=== PATIENT | female | born 1960 | race Caucasian/White ===

== ENCOUNTER → 2016-05-25 | Outpatient (REF) | payer OTHER ==
[2016-05-25 15:37] LABS: MEAN CORPUSCULAR HEMOGLOBIN 30.9 pg (27.0-33.0); MEAN CORPUSCULAR HGB CONC 34.3 g/dl (32.0-36.5); MEAN CORPUSCULAR VOLUME 90.3 fl (80.0-96.0); RED CELL DISTRIBUTION WIDTH 12.6 % (11.5-14.5); WHITE BLOOD COUNT 8.8 K/mm3 (4.0-10.0)
[2016-05-25 15:48] LABS: ALBUMIN 4.1 GM/DL (3.2-5.2); ALBUMIN/GLOBULIN RATIO 1.21 (1.00-1.93); ALKALINE PHOSPHATASE 113 U/L (45-117); ALT/SGPT 30 U/L (12-78); ANION GAP 11 MEQ/L (8-16); AST/SGOT 15 U/L (15-37); BILIRUBIN,TOTAL 0.2 MG/DL (0.2-1.0); BLOOD UREA NITROGEN 9 MG/DL (7-18); CALCIUM LEVEL 9.1 MG/DL (8.5-10.1); CARBON DIOXIDE LEVEL 28 MEQ/L (21-32); CHLORIDE LEVEL 104 MEQ/L (98-107); CHOLESTEROL LEVEL 247 MG/DL (<200); CREATININE FOR GFR 0.77 MG/DL (0.55-1.02); GLOMERULAR FILTRATION RATE > 60.0 (>51); GLUCOSE, FASTING 87 MG/DL (70-105); SODIUM LEVEL 143 MEQ/L (136-145); TOTAL PROTEIN 7.5 GM/DL (6.4-8.2); TRIGLYCERIDES LEVEL 158 MG/DL (<150)
== END ==
LOC: M SFHCPLAZ 13:37
PROVIDERS: ATTEND Nurse Practitioner Adult Health
DX: Z00.00 Encounter for general adult medical examination without abnormal findings (principal)

== ENCOUNTER → 2016-07-15 | Outpatient (REF) | payer OTHER | LOC: M SFHCWAGY 14:38 | PROVIDERS: ATTEND Nurse Practitioner Family | DX: Z12.4 Encounter for screening for malignant neoplasm of cervix (principal) ==

== ENCOUNTER → 2016-07-15 | Outpatient (CLI) | payer OTHER ==
--- NOTE | 2016-07-15 18:14 | REPMRS ---
Patient History The patient states she had a clinical breast exam in 07/25 Patient is postmenopausal. No known family history of cancer. Digital Woman Screen Mammo: July 15, 2016 - Exam #: [id number] Bilateral CC and MLO view(s) were taken. Technologist: Sarah Nichols, Technologist Prior study comparison: August 05, 2015, right breast digital mammo diagnostic unilateral, performed at [facility]. July 09, 2015, digital woman screen mammo performed at [facility]. FINDINGS: There are scattered fibroglandular densities. There has been no change in the appearance of the mammogram from the prior studies. There is a mild amount of scattered fibroglandular density which is fairly symmetric. There is no interval development of dominant mass, architectural distortion, or clustered microcalcification suggestive of malignancy. ASSESSMENT: BI-RADS/ACR category 1 mammogram. Negative. Recommendation Routine screening mammogram in 1 year (for women over age 40). This mammogram was interpreted with the aid of an FDA-approved computer-aided dectection system. Electronically Signed By: Elvis Barrow MD 07/15/16 [id number]
== END ==
LOC: M WHC 14:15
PROVIDERS: ATTEND Nurse Practitioner Family
DX: Z12.31 Encounter for screening mammogram for malignant neoplasm of breast (principal); Z78.0 Asymptomatic menopausal state

== ENCOUNTER → 2017-09-14 | Outpatient (REF) | payer OTHER ==
[2017-09-14 18:39] LABS: ALBUMIN 4.1 GM/DL (3.2-5.2); ALBUMIN/GLOBULIN RATIO 1.37 (1.00-1.93); ALKALINE PHOSPHATASE 109 U/L (45-117); ALT/SGPT 25 U/L (12-78); ANION GAP 6 MEQ/L (8-16); AST/SGOT 15 U/L (7-37); BILIRUBIN,TOTAL 0.3 MG/DL (0.2-1.0); BLOOD UREA NITROGEN 10 MG/DL (7-18); CALCIUM LEVEL 9.1 MG/DL (8.5-10.1); CARBON DIOXIDE LEVEL 28 MEQ/L (21-32); CHLORIDE LEVEL 107 MEQ/L (98-107); CHOLESTEROL LEVEL 214 MG/DL (<200); CHOLESTEROL RISK RATIO 5.095 (<5); CREATININE FOR GFR 0.76 MG/DL (0.55-1.30); GLOMERULAR FILTRATION RATE > 60.0 (>51); GLUCOSE, FASTING 82 MG/DL (70-100); HDL CHOLESTEROL 42 MG/DL (>40); LDL CHOLESTEROL 148.6 MG/DL (<100); NON-HDL-C 172 MG/DL; SODIUM LEVEL 141 MEQ/L (136-145); TOTAL PROTEIN 7.1 GM/DL (6.4-8.2); TRIGLYCERIDES LEVEL 117 MG/DL (<150)
[2017-09-15 09:52] LABS: TOTAL 25(OH) VITAMIN D 43.7 NG/ML (30.0-100.0)
== END ==
LOC: M SFHCPLAZ 15:34
DX: Z00.00 Encounter for general adult medical examination without abnormal findings (principal); E55.9 Vitamin D deficiency, unspecified; E78.2 Mixed hyperlipidemia

== ENCOUNTER → 2017-11-08 | Outpatient (REF) | payer OTHER | LOC: M SFHCLERA 11-09 12:24 | DX: D22.71 Melanocytic nevi of right lower limb, including hip (principal) ==

== ENCOUNTER → 2018-04-04 | Outpatient (CLI) | payer OTHER | LOC: M WHC 14:46 | PROVIDERS: ATTEND Nurse Practitioner Adult Health | DX: Z12.31 Encounter for screening mammogram for malignant neoplasm of breast (principal) ==

== ENCOUNTER → 2018-04-23 | Outpatient (CLI) | payer OTHER ==
--- NOTE | 2018-04-23 19:05 | REPMRS ---
Patient History The patient states she has not had a clinical breast exam in over a year. No known family history of cancer. Digital Woman Screen Mammo: April 23, 2018 - Exam #: [id number] Bilateral CC and MLO view(s) were taken. Technologist: Sarah Nichols, Technologist Prior study comparison: July 15, 2016, digital woman screen mammo performed at [facility]. August 05, 2015, right breast digital mammo diagnostic unilateral, performed at [facility]. July 09, 2015, digital woman screen mammo performed at [facility]. FINDINGS: There are scattered fibroglandular densities. There is a stable benign intramammary lymph node in the right breast unchanged. There has been no other change in the appearance of the mammogram from the prior studies. There is a mild amount of scattered fibroglandular density which is fairly symmetric. There is no interval development of dominant mass, architectural distortion, or clustered microcalcification suggestive of malignancy. 3-D tomosynthesis shows no additional findings. Assessment: BI-RADS/ACR category 2 mammogram. Benign finding(s). Recommendation Routine screening mammogram of both breasts in 1 year (for women over age 40). This patient's Lifetime Breast Cancer RIsk is estimated at 6.6 %. This mammogram was interpreted with the aid of an FDA-approved computer-aided dectection system. Electronically Signed By: Elvis Barrow MD 04/23/18 4521
== END ==
LOC: M WHC 13:26
PROVIDERS: ATTEND Nurse Practitioner Adult Health
DX: Z12.31 Encounter for screening mammogram for malignant neoplasm of breast (principal)

== ENCOUNTER → 2018-04-24 | Outpatient (CLI) | payer OTHER ==
--- NOTE | 2018-04-25 04:23 | REP ---
Clinical: Neck pain. Technique: AP, lateral, flexion/extension, bilateral oblique, swimmers, and open mouth views of the cervical spine. Findings: Straightening of normal lordosis is appreciated. Alignment is maintained. There is no evidence for acute fracture / compression injury or subluxation. Moderate to advanced multilevel degenerative changes include endplate sclerosis, osteophytosis, disc space narrowing. Findings are most pronounced at the C5-6 and C4-5 levels. Neural foramen are patent. C1-C2 articulation and odontoid process are normal. Impression: Moderate/advanced degenerative changes primarily involving C4-5 and C5-6. Electronically Signed by Obi Torres MD 04/25/2018 04:15 A
== END ==
LOC: M RAD 13:53
PROVIDERS: ATTEND Nurse Practitioner Adult Health
DX: M50.321 Other cervical disc degeneration at C4-C5 level (principal); M50.322 Other cervical disc degeneration at C5-C6 level

== ENCOUNTER 2018-06-18 13:54 | Emergency (ER) | payer OTHER ==
[~2018-06-18] VITALS: Ht 160 cm; Wt 78.2 kg
[2018-06-18] MEDS ORDERED: PROAAER10 INH (14:09)
[2018-06-18 15:04] LABS: HEMATOCRIT 41.3 % (36.0-47.0); HEMOGLOBIN 13.6 g/dl (12.0-15.5); MEAN CORPUSCULAR HEMOGLOBIN 29.4 pg (27.0-33.0); MEAN CORPUSCULAR HGB CONC 32.9 g/dl (32.0-36.5); MEAN CORPUSCULAR VOLUME 89.4 fl (80.0-96.0); PLATELET COUNT, AUTOMATED 252 10^3/uL (150-450); RED BLOOD COUNT 4.62 10^6/uL (4.00-5.40); WHITE BLOOD COUNT 8.4 10^3/uL (4.0-10.0)
[2018-06-18 15:26] LABS: BLOOD UREA NITROGEN 12 MG/DL (7-18); CALCIUM LEVEL 8.9 MG/DL (8.5-10.1); CARBON DIOXIDE LEVEL 26 MEQ/L (21-32); CHLORIDE LEVEL 107 MEQ/L (98-107); CREATININE FOR GFR 0.68 MG/DL (0.55-1.30); GLOMERULAR FILTRATION RATE > 60.0 (>51); GLUCOSE, FASTING 97 MG/DL (70-100); POTASSIUM SERUM 4.2 MEQ/L (3.5-5.1); SODIUM LEVEL 140 MEQ/L (136-145)
[2018-06-18] MEDS ORDERED: LISI10TA4 PO (15:50)
[2018-06-18 16:05] VITALS: BP 204/110
== END 2018-06-18 16:15 | disposition home or self-care (01) ==
LOC: EDBD 13:54 → M ED 13:54
DX: I10 Essential (primary) hypertension (principal); J44.1 Chronic obstructive pulmonary disease with (acute) exacerbation; F33.9 Major depressive disorder, recurrent, unspecified; F41.9 Anxiety disorder, unspecified; F17.200 Nicotine dependence, unspecified, uncomplicated; Z88.8 Allergy status to other drugs, medicaments and biological substances

== ENCOUNTER → 2019-02-22 | Outpatient (CLI) | payer OTHER ==
[~2019-02-22] MED LIST: LISI10TA4 PO; PROAAER10 INH
--- NOTE | 2019-02-22 13:58 | REP ---
MRI cervical spine: 02/22/2019. Indication: Neck pain. Comparison: 03/12/2016. Technique: Multiplanar short and long TR sequences of the cervical spine were obtained. Findings: Image quality is degraded by patient motion. There is straightening of the cervical lordosis. Disc dessication is noted throughout most pronounced at C5/C6. No worrisome marrow signal is detected. No abnormal cord signal is detected. C2/C3, C3/C4 and C4/C5: No focal disc herniation is present. There is no significant spinal canal or neural foraminal narrowing detected. C5/C6: Diffuse disc osteophyte complex is present with mild to moderate narrowing of the spinal canal. There is minimal flattening of the ventral cord. There is moderate to severe right greater than left neural foraminal narrowing. C6/C7 and C7/T1 : There is no disc herniation or significant spinal canal / neural foraminal narrowing. Impression: Degenerative sequelae of the cervical spine most pronounced at C5/C6 as described. Electronically Signed by Christofer Martinez DO 02/22/2019 01:49 P
== END ==
LOC: M RAD 09:38
PROVIDERS: ATTEND Orthopaedic Surgery
DX: M50.30 Other cervical disc degeneration, unspecified cervical region (principal); M48.02 Spinal stenosis, cervical region; M25.78 Osteophyte, vertebrae

== ENCOUNTER → 2019-06-20 | Outpatient (CLI) | payer OTHER ==
--- NOTE | 2019-06-21 05:21 | REP ---
Clinical: Lung screening. History smoking. Comparison: None Technique: Axial low-dose noncontrast images from the thoracic inlet to the upper abdomen using lung screening technique. Findings: The lung garg are well-aerated. There is a 6 mm nodule in the anterior left upper lobe (image 18). No consolidation or mass lesion is appreciated. No pleural effusion/reaction or pneumothorax. Tracheobronchial tree is patent. Mediastinum demonstrates mild atherosclerotic changes of the coronary arteries without cardiomegaly. Impression: Lung-RADS category III. 6 mm noncalcified nodule in the left upper lobe. Finding falls within the Probably Benign category and 6-month low-dose CT follow-up evaluation is recommended. Electronically Signed by Obi Torres MD 06/21/2019 05:13 A
== END ==
LOC: M RAD 13:51
PROVIDERS: ATTEND Nurse Practitioner Adult Health
DX: Z87.891 Personal history of nicotine dependence (principal); Z12.2 Encounter for screening for malignant neoplasm of respiratory organs

== ENCOUNTER → 2019-11-22 | Outpatient (CLI) | payer OTHER ==
--- NOTE | 2019-12-31 09:19 | REP ---
RIGHT SHOULDER SERIES: THREE VIEWS HISTORY: Right shoulder pain. FINDINGS: The right glenohumeral and acromioclavicular joints are normally aligned. There is minimal hypertrophy of the distal clavicle at the AC joint. No erosive change is seen. No fracture or subluxation is noted. The visualized right hemithorax is unremarkable. IMPRESSION: No acute abnormality. Minimal AC joint hypertrophy. MTDD
--- NOTE | 2019-12-31 09:20 | REP ---
HISTORY: Back pain. FINDINGS: There is a mild dextroconvex curvature. Lumbar vertebral body heights are preserved. No fracture or collapse is seen. Discogenic spurring is noted throughout the lumbar spine. Psoas margins are symmetric. Pedicles and posterior elements are intact. Sacrum and SI joints are unremarkable. IMPRESSION: Degenerative disk disease diffusely. No acute bony abnormality. MTDD
== END ==
LOC: M WUC 16:13
PROVIDERS: ATTEND Nurse Practitioner Adult Health
DX: M25.511 Pain in right shoulder (principal); M54.2 Cervicalgia

== ENCOUNTER → 2019-11-23 | Outpatient (REF) | payer OTHER ==
[2020-01-19 07:13] LABS: ALT/SGPT 32 U/L (12-78); BILIRUBIN,TOTAL 0.1 MG/DL (0.2-1.0); BLOOD UREA NITROGEN 16 MG/DL (7-18); CALCIUM LEVEL 9.8 MG/DL (8.5-10.1); CARBON DIOXIDE LEVEL 28 MEQ/L (21-32); CHLORIDE LEVEL 107 MEQ/L (98-107); CREATININE FOR GFR 0.85 MG/DL (0.55-1.30); GLOMERULAR FILTRATION RATE > 60.0 (>51); GLUCOSE, FASTING 84 MG/DL (70-100); HEMOGLOBIN A1c 5.5 %; POTASSIUM SERUM 4.2 MEQ/L (3.5-5.1); SODIUM LEVEL 141 MEQ/L (136-145); TOTAL PROTEIN 7.1 GM/DL (6.4-8.2)
== END ==
LOC: M WUC 13:27
PROVIDERS: ATTEND Nurse Practitioner Adult Health
DX: Z13.1 Encounter for screening for diabetes mellitus (principal); I10 Essential (primary) hypertension

== ENCOUNTER → 2020-01-16 | Outpatient (CLI) | payer OTHER ==
[~2020-01-16] MED LIST changes: +GASTROGRAFIN SOLUTION 30ML (Q9963) As Ordered ONE; +ISOVUE-370 76% 100ML VIAL As Ordered ONE
--- NOTE | 2020-01-21 09:34 | REP ---
CT CHEST WITHOUT CONTRAST HISTORY: Left upper lobe nodule on prior chest CT study. COMPARISON CHEST CT STUDY: 06/20/2019. This showed a 6-mm nodule in the left upper lobe. CT FINDINGS: The previously noted left upper lobe pulmonary nodule is again seen again measuring 6 mm in diameter. This has a relatively lucent center, but appears to be unchanged. No new pulmonary nodule is appreciated. No pleural or pericardial effusion is seen. No hilar or mediastinal mass or adenopathy is observed. Normal adrenal glands are seen. No bony abnormality is seen. IMPRESSION: 6-mm nodule left upper lobe again noted unchanged from the comparison study seven months prior. Lung-RADS Category 3. I would recommend a repeat chest CT study in six months time in reference to the relatively lucent center of this nodule. MTDD
== END ==
LOC: M RAD 13:01
PROVIDERS: ATTEND Nurse Practitioner Adult Health
DX: R91.1 Solitary pulmonary nodule (principal)

== ENCOUNTER → 2020-02-12 | Outpatient (CLI) | payer OTHER ==
[~2020-02-12] MED LIST changes: -GASTROGRAFIN SOLUTION 30ML (Q9963) As Ordered ONE; -ISOVUE-370 76% 100ML VIAL As Ordered ONE
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
== END ==
LOC: M PAIN 08:15
PROVIDERS: ATTEND Nurse Practitioner Family
DX: M79.18 Myalgia, other site (principal); J45.909 Unspecified asthma, uncomplicated; G43.909 Migraine, unspecified, not intractable, without status migrainosus; Z86.59 Personal history of other mental and behavioral disorders; Z87.891 Personal history of nicotine dependence; Z88.8 Allergy status to other drugs, medicaments and biological substances; Z79.51 Long term (current) use of inhaled steroids; Z79.899 Other long term (current) drug therapy

== ENCOUNTER → 2020-03-07 | Outpatient (CLI) | payer OTHER | LOC: M LABSMTC 10:25 | PROVIDERS: ATTEND Anesthesiology | DX: Z20.828 Contact with and (suspected) exposure to other viral communicable diseases (principal) ==

== ENCOUNTER → 2020-03-10 | Outpatient (CLI) | payer OTHER ==
[~2020-03-10] MED LIST changes: +BUPIVACAINE HCL 0.25% 10ML VIAL As Ordered ONE; +BUPIVACAINE HCL 0.25% 30ML VIAL As Ordered ONE; +NORCO, ANEXSIA 5/325MG TABLET (HYDROcodone/ACETAMINOPHEN) As Ordered ONE; +TRIAMCINOLONE ACETONIDE SUSP 40 MG/ML VIAL (J3301) As Ordered ONE; +diazePAM 5MG TABLET As Ordered ONE
--- NOTE | 2020-03-18 05:13 | ECWPNPC ---
PATIENT NAME: AMY DURHAM : 1960 GENDER: FEMALE VISIT DATE: 03/10/2020 DISCHARGE DATE: 03/10/20 1351 VISIT LOCKED DATE TIME: PHYSICIAN: KAJAL ADAMES MD PHYSICIAN PAGER NO: ACTIVE RESOURCE: KAJAL ADAMES MD REASON FOR APPOINTMENT 1. TRIGGER POINT INJECTION NECK RIGHT, SHOULDER RIGHT, THORACIC RIGHT HISTORY OF PRESENT ILLNESS GENERAL: -. FALL RISK SCREENING: SCREENING :NO FALLS REPORTED IN THE LAST YEAR PAIN SCREENING: PATIENT HAS A COMPLAINT OF ACUTE OR CHRONIC PAIN :YES LOCATION OF PAIN:NECK, RIGHT SHOULDER INTENSITY OF PAIN (SCALE OF 1 TO 10):10 WHAT DOES YOUR PAIN FEEL LIKE:ACHING, CONTINOUS, INTERMITTENT, SHARP, STABBING, THROBBING PAIN WORSE WITH MOVEMENT OF RIGHT ARM. DURATION:CONTINOUS PAIN IS INCREASED BY:ACTIVITIES PAIN IS DECREASED BY:USE OF PAIN MEDICATIONS CANNABIS OIL NURSING NOTE: -. PAIN CENTER INTAKE QUESTIONS: DO YOU HAVE A HISTORY OF MRSA? :NO DO YOU TAKE A BLOOD THINNERS? :NO DO YOU HAVE ANY BLEEDING DISORDERS? :NO ANY NEW NUMBNESS OR WEAKNESS IN YOUR LEGS OR ARMS? :NO ANY PACEMAKER,DEFIBRILLATOR, OR DORSAL COLUMN STIMULATOR? :NO DO YOU HAVE ANY RASHES OR OPEN SORES? :NO ARE YOU ALLERGIC TO IV DYE? :NO ARE YOU DIABETIC? :NO ANY NEW PROBLEMS WITH YOUR MEDICATIONS? :NO HAVE YOU RECEIVED A VACCINE IN THE PAST 30 DAYS? :NO DO YOU PLAN TO RECEIVE A VACCINE IN THE NEXT 21 DAYS? :NO DO YOU TAKE ANY IMMUNOSUPPRESSIVE MEDICATIONS? :NO ANY HISTORY OF SEIZURES? :NO ANY HISTORY OF CARDIAC ISSUES OR EVENTS? :YES HTN DO YOU HAVE SLEEP APNEA? :NO ANY RECENT HEAD INJURY? :NO DO YOU HAVE ANY NEW INFECTIONS? :NO IS THERE A CHANCE YOU COULD BE ? :NO ARE YOU BREAST FEEDING? :NO WHEN DID YOU LAST EAT? : 03/09/20 2200 WHEN DID YOU LAST DRINK? : 03/10/20 0500 WHAT DID YOU LAST DRINK? : WATER NAME OF PERSON DRIVING YOU HOME? : [employer] DO YOU HAVE ANY OTHER QUESTIONS OR CONCERNS? : NO CURRENT MEDICATIONS TAKING MAY USE PATIENT STATES SHE USES MEDICAL MARIJUANA OIL, NOTES: FEW DAYS AGO TAKING AMLODIPINE BESYLATE 5 MG TABLET 1 TABLET ORALLY ONCE A DAY, NOTES: 03/10/20 0500 TAKING DRISDOL 59467 UNIT CAPSULE 1 CAPSULE ORALLY WEEKLY, NOTES: 03/01/20 TAKING NORVASC 5MG TABLET ORAL ORALLY DAILY, NOTES: 03/10/20 0500 TAKING FLUTICASONE-SALMETEROL(SENSOR) 232-14 MCG/ACT AEROSOL POWDER BREATH ACTIVATED 1 PUFF INHALATION BID, NOTES: NOT RECENTLY TAKING ALBUTEROL SULFATE HFA 108 (90 BASE) MCG/ACT AEROSOL SOLUTION 1 PUFF NEEDED INHALATION EVERY 4 HRS, NOTES: A FEW DAYS TAKING LOSARTAN POTASSIUM 100 MG TABLET 1 TABLET ORALLY ONCE A DAY, NOTES: 03/10/20 0500 NOT-TAKING ARNUITY ELLIPTA 200 MCG/ACT AEROSOL POWDER BREATH ACTIVATED 1 PUFF INHALATION ONCE A DAY NOT-TAKING VITAMIN D 125 MCG (5000 UT) CAPSULE DIRECTED ORALLY 1 MEDICATION LIST REVIEWED AND RECONCILED WITH THE PATIENT PAST MEDICAL HISTORY FOLLOWS WITH [facility]/NO LONGER FOLLOWS WITH [facility] TOBACCO ABUSE QUIT 04/23/2018 ANXIETY PER PATIENT ASTHMA A CHILD DEPRESSION MIGRAINE ARTHRITIS COLONOSCOPY 07/28/2015 SMALL INTERNAL HEMORRHOIDS ENTIRE COLON IS NORMAL 10 YEAR FOLLOW-UP SUGGESTED PFT'S 09/23/15 @ [facility] OBSTRUCTIVE DEFICIT REFUSES PNEUMONIA VACCINES 11/2016 REF 09/25 REF 03/2018 REF 05/2019 CERVICAL AND RIGHT SHOULDER PAIN ALLERGIES EFFEXOR: HIVES, RASH - ALLERGY PROZAC: HEART RACE - SIDE EFFECTS PAXIL: RASH - SIDE EFFECTS ZYBAN: HEADACHE - SIDE EFFECTS LISINOPRIL: SLEEPY - LACK OF THERAPEUTIC EFFECT SURGICAL HISTORY 1984, 1985 COLONOSCOPY 07/28/2015 REMOVED ALL OF TEETH 04/06/2016 [facility] HYSTEROSCOPY AND POLYPECTOMY DR MARQUEZ 10/01/15 FAMILY HISTORY 2DAUGHTER(S) - HEALTHY. 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 SOCIAL HISTORY GENERAL: TOBACCO USE ARE YOU A:NONSMOKER QUIT June SMOKING CESSATION INFORMATION GIVEN06/14/2017 ADDITIONAL FINDINGS: TOBACCO VAT-[id number] SMOKER VAPORNO E-CIGARETTENO LATEX QUESTIONNAIRE LATEX ALLERGY : HAVE YOU EVER DEVELOPED ANY TYPE OF REACTION AFTER HANDLING LATEX PRODUCTS SUCH RUBBER GLOVES, CONDOMS, DIAPHRAGMS, BALLOONS, SOCKS, OR UNDERWEAR?NO LATEX ALLERGY : HAVE YOU EVER DEVELOPED ANY TYPE OF REACTION DURING OR AFTER DENTAL APPOINTMENT, VAGINAL/RECTAL EXAMINATION, SURGICAL PROCEDURE, OR ANY OTHER EXPOSURE?NO LATEX RISK : HAVE YOU EVER HAD ANY DIFFICULTY BREATHING OR HIVES AFTER EATING OR HANDLING ANY FRUITS, OR VEGETABLES; SUCH KIWI, BANANAS, STONE FRUITS, OR CHESTNUTSNO LATEX RISK : DO YOU HAVE A PREVIOUS PERSONAL HISTORY OF MORE THAN NINE SURGERIES, SPINA BIFIDA, OR REPEATED CATHERIZATIONS? NO LATEX RISK : ARE YOU FREQUENTLY EXPOSED TO LATEX PRODUCTS IN YOUR OCCUPATION?NO DATE ASKED : 03/09/2020 LUNG CANCER SCREENING SMOKING STATUS:FORMER SMOKER IS THE PATIENT BETWEEN THE AGE OF 57 AND 79?YES HAVE YOU QUIT SMOKING WITHIN THE PAST 15 YEARS?YES HAS THE PATIENT EVER BEEN DIAGNOSED WITH LUNG CANCER?NO CREATE REFERRAL:GENERATE AND CREATE REFERRAL TO THE ONCOLOGY NURSE NAVIGATOR (SMP) LISTING USING THE LDCT SCAN PROCEDURE DISCLAIMER:PLEASE ADD DISCLAIMER FROM BROWSE SECTION OF THE NOTE BMI CARE GOAL FOLLOW-UP ABOVE NORMAL BMI FOLLOW-UPDIETARY MANAGEMENT EDUCATION, GUIDANCE, AND COUNSELING ALCOHOL SCREENING DID YOU HAVE A DRINK CONTAINING ALCOHOL IN THE PAST YEAR?YES HOW OFTEN DID YOU HAVE SIX OR MORE DRINKS ON ONE OCCASION IN THE PAST YEAR?NEVER (0 POINTS) HOW MANY DRINKS DID YOU HAVE ON A TYPICAL DAY WHEN YOU WERE DRINKING IN THE PAST YEAR?1 OR 2 (0 POINTS) HOW OFTEN DID YOU HAVE A DRINK CONTAINING ALCOHOL IN THE PAST YEAR?MONTHLY OR LESS (1 POINT) POINTS1 INTERPRETATIONNEGATIVE RECREATIONAL DRUG USE DRUG USE?YES HOW OFTEN AND HOW MUCH? PT USES MEDICAL MARIJUANA CAFFEINE CAFFEINE USE?YES YES HOW OFTEN AND HOW MUCH? 4 COFFEE DAILY SEXUAL HX HAD SEX IN THE LAST 12 MONTHS (VAGINAL, ORAL, OR ANAL)?NO HAVE YOU EVER HAD AN STD?NO HIV / HEP-C SCREENING HIV TEST OFFERED TO PATIENT:YES ALREADY DONE DATE OFFERED:07/20/2017 TEST ACCEPTED:NO HEP-C TEST OFFERED TO PATIENT:YES DATE OFFERED:07/20/2017 REASON:OTHER (DOCUMENT IN NOTE) ALREADY BEEN TESTED NEGATIVE TEST ACCEPTED:NO REASON:PATIENT DECLINED BROCHURE PROVIDED TO PATIENTYES 07/20/2017 SCIENTOLOGY [id number] NONE LANGUAGE LANGUAGES SPOKEN:JORDANIAN EDUCATION LEVEL OF EDUCATION:NOT FINISHED HIGH SCHOOL JUST COMPLETED GED LEARNING BARRIERS / SPECIAL NEEDS CHANGE FROM LAST VISIT?NO BARRIERS TO LEARNING?NO HEARING IMPAIRED?NO VISION IMPAIRED?YES :CORRECTIVE LENSES COGNITIVELY IMPAIRED?NO READINESS TO LEARN?YES LEARNING PREFERENCES?NO LEARNING CAPABILITIES PRESENT?YES EMOTIONAL BARRIERS?NO SPECIAL DEVICES?YES :BRACE KNEE BRACES FOR LONG DISTANCE SKIING TEACHER NEEDED?NO DOMESTIC VIOLENCE DO YOU FEEL SAFE IN YOUR ENVIRONMENT?YES OCCUPATION: DOES NOT WORK DUE TO EMOTIONAL ISSUES. DIET: REGULAR. EXERCISE: WALKING. MARITAL STATUS: .. OTHERS AT HOME: NONE. PAIN CLINIC PFS, CLERGY, PUBLIC HEALTH REFERRALS PFS REFERRAL NEEDED?NO CLERGY REFERRAL NEEDED?NO PUBLIC HEALTH REFERRAL NEEDED?NO WAS THE PROVIDER NOTIFIED OF ANY PERTINENT INFO?YES HAS THE PATIENT BEEN EDUCATED REGARDING HIS/HER PLAN OF CARE?YES HAS THE PATIENT BEEN EDUCATED REGARDING PAIN, THE RISK FOR PAIN, THE IMPORTANCE OF EFFECTIVE PAIN MANAGEMENT, AND THE PAIN ASSESSMENT PROCESS?YES HOUSING: MOVED INTO [facility]. ADVANCE DIRECTIVE ADVANCE DIRECTIVE DISCUSSED WITH PATIENT:YES STATES SHE DOES NOT HAVE ADVANCED DIRECTIVES BORN AND RASIED IN [place],. HOSPITALIZATION/MAJOR DIAGNOSTIC PROCEDURE [facility]- [facility] 02/1985 VITAL SIGNS WT 186.6 LBS, HT 62 IN, BMI 34.13 INDEX, BP 183/90 MM HG, HR 73 /MIN, RR 18 /MIN, TEMP 98.0 F, OXYGEN SAT % 98%, SAFE IN ENV? (Y/N) YES, NA INITIALS SC 09:34, REVIEWED BY: ALVAREZ FULLER WORKERS COMPENSATION CONSULTANT. EXAMINATION GENERAL EXAMINATION: THE PATIENT IS ALERT, ORIENTED TIMES THREE AND COOPERATIVE. HEART SHOWS REGULAR RHYTHM, NO MURMURS AND NO GALLOPS. LUNGS ARE CLEAR TO AUSCULTATION. ASSESSMENTS MYALGIA, OTHER SITE - M79.18 (PRIMARY) TREATMENT MYALGIA, OTHER SITE MEDICATION: NORCO TABLET 5MG/325MG ORALLY (HYDROCODONE/ACETAMINOPHEN)ASTRID VALENCIA 03/10/2020 09:48:45 AM - GIVE 2 TABS OKSANA FULLER 03/10/2020 11:00:23 AM > LOT# [id number] EXP: 06/2021. REE ANDERSON 03/10/2020 11:02:02 AM > VERIFIED OKSANA FULLER 03/10/2020 11:06:09 AM > ADMINISTERED. MEDICATION: VALIUM TAB 10MG ORALLY (DIAZEPAM)OKSANA FULLER 03/10/2020 11:00:49 AM > LOT# [id number] EXP: 10/28. REE ANDERSON 03/10/2020 11:02:16 AM > VERIFIED OKSANA FULLER 03/10/2020 11:06:32 AM > ADMINISTERED. PROCEDURES PAIN NURSING RECORD PRE-PROCEDURE IV SITE N/A, PRE-PROCEDURE ORAL MEDICATIONS YES PER MD ORDERS. PROCEDURE IN ROOM 0934 UPON ARRIVAL TO CLINIC, PHYSICIAN IN ROOM 1322, START 1325, FINISH 1328, PHYSICIAN OUT OF ROOM 1330, OUT OF ROOM 1350, STEROID KENALOG, O2 RA, ECG N/A, PATIENT SHIELDED NO, SAFETY STRAP NO, PREP ALCOHOL DR. ADAMES, IV INFUSED N/A, DRESSING TEGADERM Guera FULLER WORKERS COMPENSATION CONSULTANT LOC: OKSANA FULLER 03/10/2020 09:55:00 PM > 1. ALERT, ORIENTED, LOC REMAINED AT BASELINE THROUGHOUT THE PROCEDURE RESP: OKSANA FULLER 03/10/2020 09:55:00 PM > 1. REGULAR, NO DYSPNEA COLOR: OKSANA FULLER 03/10/2020 09:55:00 PM > 1. PINK SKIN: OKSANA FULLER 03/10/2020 09:55:00 PM > 1. WARM, DRY POSITION: OKSANA FULLER 03/10/2020 09:55:00 PM > 4. OTHER, SITTING VITALS: OKSANA FULLER 03/10/2020 1:42:48 PM > POST PROCEDURE 166/89, 68, 98% RA, 18. DISCHARGE: POST PAIN 0/10, DRESSING SITE DRY AND INTACT, IV N/A, GAIT STEADY, TEACHING COMPLETED, PATIENT ACKNOWLEDGES UNDERSTANDING YES, PATIENT DISCHARGED AT 1350 PN TRIGGER POINT INJECTION WITH STEROIDS PRE PROCEDURE DIAGNOSIS 1. MYALGIA 2. PAIN AT RIGHT NECK AREA, RIGHT SHOULDER AREA AND RIGHT THORACIC AREA POST PROCEDURE DIAGNOSIS 1. MYALGIA 2. PAIN AT RIGHT NECK AREA, RIGHT SHOULDER AREA AND RIGHT THORACIC AREA PROCEDURE TRIGGER POINT INJECTION AT RIGHT NECK AREA, RIGHT SHOULDER AREA AND RIGHT THORACIC AREA SURGEON DR. KAJAL ADAMES U.S. SENATOR NONE ANESTHESIA LOCAL PRE PROCEDURE NOTE THE PATIENT HAS A HISTORY OF CHRONIC PAIN AT THE RIGHT NECK AREA, RIGHT SHOULDER AREA AND RIGHT THORACIC AREA. I EVALUATED THE PATIENT AND REVIEWED THE CHART. THERE IS EVIDENCE OF BANDS OF TISSUE WITH RESTRICTION OF MOVEMENT AND PRESENCE OF TRIGGER POINT AT THE RIGHT NECK AREA, RIGHT SHOULDER AREA AND RIGHT THORACIC AREA. I WENT OVER THE RISKS, ALTERNATIVES, AND BENEFITS ASSOCIATED WITH THIS PROCEDURE. I DISCUSSED THAT THE USE OF STEROIDS MAY CONTRIBUTE TO IMMUNOSUPPRESSION OF THE PATIENT'S BODY AGAINST INFECTIONS SUCH COVID-19. THE PATIENT IS AWARE OF THE POTENTIAL COMPLICATIONS ASSOCIATED WITH THIS VIRUS, INCLUDING, BUT NOT LIMITED TO, . THE PATIENT WOULD LIKE TO PROCEED AND GIVE CONSENT TO PERFORMED THE PROCEDURE. THE PATIENT DENIES UNEXPLAINABLE WEIGHT LOSS, FEVER, CHILLS, OR NEW CHANGES IN URINARY OR BOWEL CONTROL. THE PATIENT IS COVID-19 NEGATIVE DESCRIPTION OF PROCEDURE THE PATIENT WAS BROUGHT TO THE PROCEDURE ROOM AND PLACED IN THE SITTING POSITION. THE AREA WAS CLEANED WITH ALCOHOL. THE PROCEDURE WAS DONE USING ASEPTIC STERILE TECHNIQUE. A TIMEOUT WAS PERFORMED WHERE LATERALITY AND THE SITE OF THE PROCEDURE WERE CHECKED AND CONFIRMED WITH EVERYONE IN THE ROOM. USING A 25-GAUGE NEEDLE, TRIGGER POINTS WERE INJECTED AT THE RIGHT NECK AREA, RIGHT SHOULDER AREA AND RIGHT THORACIC AREA WITH A TOTAL OF 40 ML OF BUPIVACAINE 0.25% AND KENALOG 40 MG. THE MEDICATIONS WERE VERIFIED WITH THE NURSE. THERE WAS NO EVIDENCE OF BLOOD OR PARESTHESIA DURING THE PROCEDURE. THE PATIENT WAS SENT TO THE RECOVERY ROOM. THE PATIENT WAS MOVING THE EXTREMITIES AND DOING WELL. THERE WERE NO COMPLICATIONS DURING THE PROCEDURE. ESTIMATED BLOOD LOSS WAS LESS THAN 5 ML POST PROCEDURE NOTE THE PROCEDURE DONE WAS DISCUSSED WITH THE PATIENT. THE PATIENT WILL BE SEEN IN A FOLLOW UP IN THE NEXT FEW WEEKS. I AM LOOKING FOR LONG LASTING PAIN RELIEF FOR THE PATIENT WITH THIS INTERVENTION. INSTRUCTIONS WERE GIVEN, QUESTIONS WERE ANSWERED, AND THE PATIENT EXPRESSED UNDERSTANDING AND AGREES WITH THE PLAN. I, ASTRID VALENCIA, DOCUMENTED THE ABOVE INFORMATION ACTING A SCRIBE FOR DR. ADAMES. I HAVE REVIEWED THE ABOVE DOCUMENT, WRITTEN BY ASTRID VALENCIA, PRINTED CIRCUIT BOARD REWORKER, AND I VERIFY THAT IT IS ACCURATE PROCEDURE CODES 94083 INJECT TRIGGER POINTS 3/> DISPOSITION & COMMUNICATION FOLLOW UP FOLLOW UP WITH SEISMOLOGY TECHNICAL OFFICER (REASON: POST TRIGGER POINT INJECTION NECK RIGHT, SHOULDER RIGHT, THORACIC RIGHT) ELECTRONICALLY SIGNED BY KAJAL ADAMES MD, MD ON 03/17/2020 AT 12:11 PM EST DISCLAIMER : THIS IS A VISIT SUMMARY EXTRACTED FROM THE [employer] CHART. IT IS NOT A COPY OF THE [employer] PROGRESS NOTE. GERBER
== END ==
LOC: M PAIN 09:30
PROVIDERS: ATTEND Anesthesiology
DX: M79.18 Myalgia, other site (principal); F41.9 Anxiety disorder, unspecified; F32.9 Major depressive disorder, single episode, unspecified; G43.909 Migraine, unspecified, not intractable, without status migrainosus; Z87.891 Personal history of nicotine dependence; Z79.899 Other long term (current) drug therapy; Z88.8 Allergy status to other drugs, medicaments and biological substances
CPT/HCPCS: 20553; J3301

== ENCOUNTER → 2020-03-30 | Outpatient (CLI) | payer OTHER ==
[~2020-03-30] MED LIST changes: -BUPIVACAINE HCL 0.25% 10ML VIAL As Ordered ONE; -BUPIVACAINE HCL 0.25% 30ML VIAL As Ordered ONE; -NORCO, ANEXSIA 5/325MG TABLET (HYDROcodone/ACETAMINOPHEN) As Ordered ONE; -TRIAMCINOLONE ACETONIDE SUSP 40 MG/ML VIAL (J3301) As Ordered ONE; -diazePAM 5MG TABLET As Ordered ONE
--- NOTE | 2020-03-30 23:14 | ECWPNPC ---
PATIENT NAME: AMY DURHAM : 1960 GENDER: FEMALE VISIT DATE: 03/30/2020 DISCHARGE DATE: 03/30/20 1123 VISIT LOCKED DATE TIME: PHYSICIAN: HOLLY HERNANDEZ PHYSICIAN PAGER NO: ACTIVE RESOURCE: HOLLY HERNANDEZ REASON FOR APPOINTMENT 1. RIGHT NECK, SHOULDER, SCAPULAR TRIGGER POINT INJECTION HISTORY OF PRESENT ILLNESS GENERAL: HERE FOR POST PROCEDURE FOLLOW-UP. HAD RIGHT NECK, SHOULDER AND SCAPULAR TRIGGER POINT INJECTIONS ON 03/10/2020. REPORTING MARKED REDUCTION IN PAIN THAT CONTINUES TODAY. CHIEF AREA OF PAIN IS RIGHT SHOULDER. PAIN IN THIS AREA IS AGGRAVATED WITH RANGE OF JOINT MOTION OF THE SHOULDER. SHE IS A PATIENT OF [facility]. I HAVE ADVISED HER TO CONTACT THEM TO EVALUATE RIGHT SHOULDER PAIN. SHE MAY BE A CANDIDATE FOR SHOULDER INJECTIONS BUT SHE WOULD NEED TO BE CLEARED BY [facility]. OVERALL SHE IS VERY HAPPY WITH THE RELIEF OF BURNING PAIN THAT SHE WAS EXPERIENCING OVER RIGHT NECK AND RIGHT UPPER BACK SINCE TPI'S. -. FALL RISK SCREENING: SCREENING :NO FALLS REPORTED IN THE LAST YEAR PAIN SCREENING: PATIENT HAS A COMPLAINT OF ACUTE OR CHRONIC PAIN :NO NURSING NOTE: -. PAIN CENTER INTAKE QUESTIONS: DO YOU HAVE A HISTORY OF MRSA? :NO DO YOU TAKE A BLOOD THINNERS? :NO DO YOU HAVE ANY BLEEDING DISORDERS? :NO ANY NEW NUMBNESS OR WEAKNESS IN YOUR LEGS OR ARMS? :NO ANY PACEMAKER,DEFIBRILLATOR, OR DORSAL COLUMN STIMULATOR? :NO DO YOU HAVE ANY RASHES OR OPEN SORES? :NO ARE YOU ALLERGIC TO IV DYE? :NO ARE YOU DIABETIC? :NO ANY NEW PROBLEMS WITH YOUR MEDICATIONS? :NO HAVE YOU RECEIVED A VACCINE IN THE PAST 30 DAYS? :NO DO YOU PLAN TO RECEIVE A VACCINE IN THE NEXT 21 DAYS? :NO DO YOU NEED ANY PRESCRIPTION? :NO DO YOU TAKE ANY IMMUNOSUPPRESSIVE MEDICATIONS? :NO IS THERE A CHANCE YOU COULD BE ? :NO ARE YOU BREAST FEEDING? :NO CURRENT MEDICATIONS TAKING MAY USE PATIENT STATES SHE USES MEDICAL MARIJUANA OIL TAKING AMLODIPINE BESYLATE 5 MG TABLET 1 TABLET ORALLY ONCE A DAY TAKING DRISDOL 16375 UNIT CAPSULE 1 CAPSULE ORALLY WEEKLY TAKING NORVASC 5MG TABLET ORAL ORALLY DAILY TAKING FLUTICASONE-SALMETEROL(SENSOR) 232-14 MCG/ACT AEROSOL POWDER BREATH ACTIVATED 1 PUFF INHALATION BID TAKING ALBUTEROL SULFATE HFA 108 (90 BASE) MCG/ACT AEROSOL SOLUTION 1 PUFF NEEDED INHALATION EVERY 4 HRS TAKING LOSARTAN POTASSIUM 100 MG TABLET 1 TABLET ORALLY ONCE A DAY NOT-TAKING ARNUITY ELLIPTA 200 MCG/ACT AEROSOL POWDER BREATH ACTIVATED 1 PUFF INHALATION ONCE A DAY NOT-TAKING VITAMIN D 125 MCG (5000 UT) CAPSULE DIRECTED ORALLY 1 PAST MEDICAL HISTORY FOLLOWS WITH [facility]/NO LONGER FOLLOWS WITH [facility] TOBACCO ABUSE QUIT 04/23/2018 ANXIETY PER PATIENT ASTHMA A CHILD DEPRESSION MIGRAINE ARTHRITIS COLONOSCOPY 07/28/2015 SMALL INTERNAL HEMORRHOIDS ENTIRE COLON IS NORMAL 10 YEAR FOLLOW-UP SUGGESTED PFT'S 09/23/15 @ [facility] OBSTRUCTIVE DEFICIT REFUSES PNEUMONIA VACCINES 11/2016 REF 09/25 REF 03/2018 REF 05/2019 CERVICAL AND RIGHT SHOULDER PAIN ALLERGIES EFFEXOR: HIVES, RASH - ALLERGY PROZAC: HEART RACE - SIDE EFFECTS PAXIL: RASH - SIDE EFFECTS ZYBAN: HEADACHE - SIDE EFFECTS LISINOPRIL: SLEEPY - LACK OF THERAPEUTIC EFFECT SURGICAL HISTORY 1983, 1984 COLONOSCOPY 07/28/2015 REMOVED ALL OF TEETH 04/06/2016 [facility] HYSTEROSCOPY AND POLYPECTOMY DR MARQUEZ 10/01/15 FAMILY HISTORY 2DAUGHTER(S) - HEALTHY. 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 SOCIAL HISTORY GENERAL: TOBACCO USE ARE YOU A:NONSMOKER QUIT June ADDITIONAL FINDINGS: TOBACCO [id number] SMOKER VAPORNO E-CIGARETTENO SMOKING CESSATION INFORMATION GIVEN06/14/2017 LATEX QUESTIONNAIRE LATEX ALLERGY : HAVE YOU EVER DEVELOPED ANY TYPE OF REACTION AFTER HANDLING LATEX PRODUCTS SUCH RUBBER GLOVES, CONDOMS, DIAPHRAGMS, BALLOONS, SOCKS, OR UNDERWEAR?NO LATEX ALLERGY : HAVE YOU EVER DEVELOPED ANY TYPE OF REACTION DURING OR AFTER DENTAL APPOINTMENT, VAGINAL/RECTAL EXAMINATION, SURGICAL PROCEDURE, OR ANY OTHER EXPOSURE?NO LATEX RISK : HAVE YOU EVER HAD ANY DIFFICULTY BREATHING OR HIVES AFTER EATING OR HANDLING ANY FRUITS, OR VEGETABLES; SUCH KIWI, BANANAS, STONE FRUITS, OR CHESTNUTSNO LATEX RISK : DO YOU HAVE A PREVIOUS PERSONAL HISTORY OF MORE THAN NINE SURGERIES, SPINA BIFIDA, OR REPEATED CATHERIZATIONS? NO LATEX RISK : ARE YOU FREQUENTLY EXPOSED TO LATEX PRODUCTS IN YOUR OCCUPATION?NO DATE ASKED : 03/09/2020 LUNG CANCER SCREENING SMOKING STATUS:FORMER SMOKER IS THE PATIENT BETWEEN THE AGE OF 57 AND 79?YES HAVE YOU QUIT SMOKING WITHIN THE PAST 15 YEARS?YES HAS THE PATIENT EVER BEEN DIAGNOSED WITH LUNG CANCER?NO CREATE REFERRAL:GENERATE AND CREATE REFERRAL TO THE ONCOLOGY NURSE NAVIGATOR (SMP) LISTING USING THE LDCT SCAN PROCEDURE DISCLAIMER:PLEASE ADD DISCLAIMER FROM BROWSE SECTION OF THE NOTE BMI CARE GOAL FOLLOW-UP ABOVE NORMAL BMI FOLLOW-UPDIETARY MANAGEMENT EDUCATION, GUIDANCE, AND COUNSELING ALCOHOL SCREENING DID YOU HAVE A DRINK CONTAINING ALCOHOL IN THE PAST YEAR?YES HOW OFTEN DID YOU HAVE SIX OR MORE DRINKS ON ONE OCCASION IN THE PAST YEAR?NEVER (0 POINTS) HOW MANY DRINKS DID YOU HAVE ON A TYPICAL DAY WHEN YOU WERE DRINKING IN THE PAST YEAR?1 OR 2 (0 POINTS) HOW OFTEN DID YOU HAVE A DRINK CONTAINING ALCOHOL IN THE PAST YEAR?MONTHLY OR LESS (1 POINT) POINTS1 INTERPRETATIONNEGATIVE RECREATIONAL DRUG USE DRUG USE?YES HOW OFTEN AND HOW MUCH? PT USES MEDICAL MARIJUANA CAFFEINE CAFFEINE USE?YES YES HOW OFTEN AND HOW MUCH? 4 COFFEE DAILY SEXUAL HX HAD SEX IN THE LAST 12 MONTHS (VAGINAL, ORAL, OR ANAL)?NO HAVE YOU EVER HAD AN STD?NO HIV / HEP-C SCREENING HIV TEST OFFERED TO PATIENT:YES ALREADY DONE DATE OFFERED:07/20/2017 TEST ACCEPTED:NO HEP-C TEST OFFERED TO PATIENT:YES DATE OFFERED:07/20/2017 REASON:OTHER (DOCUMENT IN NOTE) ALREADY BEEN TESTED NEGATIVE TEST ACCEPTED:NO REASON:PATIENT DECLINED BROCHURE PROVIDED TO PATIENTYES 07/20/2017 HOLINESS [id number] NONE LANGUAGE LANGUAGES SPOKEN:WOLOF EDUCATION LEVEL OF EDUCATION:NOT FINISHED HIGH SCHOOL JUST COMPLETED GED LEARNING BARRIERS / SPECIAL NEEDS CHANGE FROM LAST VISIT?NO BARRIERS TO LEARNING?NO HEARING IMPAIRED?NO VISION IMPAIRED?YES COGNITIVELY IMPAIRED?NO :CORRECTIVE LENSES READINESS TO LEARN?YES LEARNING PREFERENCES?NO LEARNING CAPABILITIES PRESENT?YES EMOTIONAL BARRIERS?NO SPECIAL DEVICES?YES :BRACE KNEE BRACES FOR LONG DISTANCE SERVER ASSISTANT NEEDED?NO DOMESTIC VIOLENCE DO YOU FEEL SAFE IN YOUR ENVIRONMENT?YES OCCUPATION: DOES NOT WORK DUE TO EMOTIONAL ISSUES. DIET: REGULAR. EXERCISE: WALKING. MARITAL STATUS: .. OTHERS AT HOME: NONE. PAIN CLINIC PFS, CLERGY, PUBLIC HEALTH REFERRALS PFS REFERRAL NEEDED?NO CLERGY REFERRAL NEEDED?NO PUBLIC HEALTH REFERRAL NEEDED?NO WAS THE PROVIDER NOTIFIED OF ANY PERTINENT INFO?YES HAS THE PATIENT BEEN EDUCATED REGARDING HIS/HER PLAN OF CARE?YES HAS THE PATIENT BEEN EDUCATED REGARDING PAIN, THE RISK FOR PAIN, THE IMPORTANCE OF EFFECTIVE PAIN MANAGEMENT, AND THE PAIN ASSESSMENT PROCESS?YES HOUSING: MOVED INTO [facility]. ADVANCE DIRECTIVE ADVANCE DIRECTIVE DISCUSSED WITH PATIENT:YES STATES SHE DOES NOT HAVE ADVANCED DIRECTIVES BORN AND RASIED IN [place],. HOSPITALIZATION/MAJOR DIAGNOSTIC PROCEDURE [facility]- [facility] [facility] 02/1985 REVIEW OF SYSTEMS CONSTITUTIONAL: ANY RECENT FEVER NO . CHILLS NO . WEIGHT CHANGE OF UNKNOWN REASONS NO . GASTROENTEROLOGY: NEW UNEXPLAINABLE CHANGES IN BOWEL CONTROL NO . CONSTIPATION NO . GENITOURINARY: ANY NEW CHANGE IN BLADDER CONTROL? NO . NEUROLOGY: NEW ONSET DIZZINESS OR NEUROLOGICAL CHANGES NOT MENTIONED NO . NEW NUMBNESS OR PAIN PATTERNS NOT MENTIONED AND PERTINENT TO TODAY'S VISIT NO . CARDIOLOGY: NEW CHEST PRESSURE NO . NEW CHEST PAIN NO . RESPIRATORY: UNEXPLAINABLE COUGH NO . NEW SHORTNESS OF BREATH NO . VITAL SIGNS WT 187.8 LBS, HT 62 IN, BMI 34.35 INDEX, BP 145/94 MM HG, HR 73 /MIN, RR 18 /MIN, TEMP 97.0 F, OXYGEN SAT % 96%, SAFE IN ENV? (Y/N) YES, NA INITIALS AW [id number]/ 1046 REVIEWED. Brenton GIRALDO RN. EXAMINATION GENERAL EXAMINATION: GENERALAWAKE,ALERT ,PLEASANT . PSYCHAFFECT NORMAL . LUNGS:LUNG ASHTON ARE CLEAR TO AUSCULTATION BILATERALLY. GOOD MOVEMENT OF AIR . HEART:S1, S2 IN A REGULAR RATE AND RHYTHM. NO SIGNIFICANT MURMURS, RUBS OR GALLOPS NOTED . ASSESSMENTS OTHER CHRONIC PAIN - G89.29 (PRIMARY) MYALGIA, OTHER SITE - M79.18 TREATMENT OTHER CHRONIC PAIN PAIN PROCEDURE LOGDATE OF [id number]/1/20PROCEDURE:TRIGGER POINT INJECTIONS RIGHT NECK, RIGHT SHOULDER, THORACIC AREASAMOUNT OF PRE SEDATEVALIUM 10 MG, NORCO 10/650 MGRESULT:MARKED REDUCTION IN RIGHT NECK AND UPPER BACK PAIN CONTINUES TODAY NOTES: DUE TO PERSISTENT RIGHT SHOULDER PAIN ESPECIALLY WITH MOVEMENT I'VE ADVISED PATIENT TO CONTACT [facility] SHE IS A PATIENT THERE. THEY WILL EVALUATE SPECIFICALLY RIGHT SHOULDER ISSUE AND ADVISE. CONTINUE HOME EXERCISE AND STRETCHING. FOLLOW-UP IS SCHEDULED IN 3 MONTHS. PATIENT IS ENCOURAGED TO CALL SOONER SHOULD HER NECK AND UPPER BACK PAIN RETURN. PROCEDURE CODES FA211 ESTABILISHED PATIENT [facility] CHARGE DISPOSITION & COMMUNICATION FOLLOW UP 3 MONTHS (REASON: NECK AND RIGHT SCAPULAR AND UPPER BACK RESPONDS WELL TO TRIGGER POINT INJECTION) ELECTRONICALLY SIGNED BY MONROE MEJÍA ON 03/30/2020 AT 02:50 PM EST DISCLAIMER : THIS IS A VISIT SUMMARY EXTRACTED FROM THE [employer] CHART. IT IS NOT A COPY OF THE [employer] PROGRESS NOTE. GERBER
== END ==
LOC: M PAIN 10:45
PROVIDERS: ATTEND Nurse Practitioner Family
DX: M79.18 Myalgia, other site (principal); J45.909 Unspecified asthma, uncomplicated; G43.909 Migraine, unspecified, not intractable, without status migrainosus; Z86.59 Personal history of other mental and behavioral disorders; Z87.891 Personal history of nicotine dependence; Z88.8 Allergy status to other drugs, medicaments and biological substances; Z79.899 Other long term (current) drug therapy

== ENCOUNTER → 2020-04-13 | Outpatient (CLI) | payer OTHER ==
--- NOTE | 2020-04-13 09:03 | REPPI ---
INDICATION: RIGHT SHOULDER PAIN COMPARISON: None. TECHNIQUE: Internal rotation, external rotation, and Y view. FINDINGS: No acute fracture or dislocation. The acromioclavicular and glenohumeral joints are intact. Subacromial space is normal. No periarticular calcifications are appreciated. Minimal age-related changes noted. IMPRESSION: Minimal generalized age-related changes. No overt osteoarthritic findings by radiographic evaluation. <Electronically signed by Obi Torres > 04/13/20 [id number]
== END ==
LOC: M PLAIMG 08:17
PROVIDERS: ATTEND Nurse Practitioner Adult Health
DX: M25.511 Pain in right shoulder (principal)

== ENCOUNTER → 2020-06-12 | Outpatient (REF) | payer OTHER ==
[~2020-06-12] MED LIST changes: +LISI10TA22 PO; -LISI10TA4 PO
== END ==
LOC: M SFHCWAGY 13:09
PROVIDERS: ATTEND Nurse Practitioner Family
DX: Z12.4 Encounter for screening for malignant neoplasm of cervix (principal)

== ENCOUNTER → 2020-06-23 | Outpatient (CLI) | payer OTHER ==
--- NOTE | 2020-06-23 11:17 | REP ---
INDICATION: N63.0 RT BREAST SWELLING. Patient reports swelling in the upper-outer quadrant of the right breast for the last 2 weeks. COMPARISON: Mammography comparison mammography is reviewed from 23 April 2018, 15 July 2016, and 05 August 2015. TECHNIQUE: Bilateral CC and MLO) view(s) were taken. Routine views were augmented by 3D tomography. Targeted right breast sonography is performed as well. FINDINGS: The breast parenchyma is predominantly fat replaced. No suspicious or dominant density is seen. No microcalcification or architectural distortion is seen. There is a stable intramammary lymph node in the upper-outer quadrant of the right breast 9 mm in greatest diameter unchanged from the 2016 prior study. No worrisome skin change is appreciated. 3-D tomosynthesis shows no additional finding. The Volpara volumetric breast density pattern is a. Targeted right breast sonography: The right breast is examined in the upper outer quadrant. The lymph node visible in the upper outer quadrant of the right breast on mammography is seen in the 9 o'clock position on sonography, 6 cm from the nipple. This measures 0.8 cm in greatest diameter and has a benign appearance. There is a small benign appearing lymph node with a thin cortical margin in the right axilla. Homogeneous sonographic breast parenchyma is observed otherwise. No suspicious sonographic finding.. IMPRESSION: BIRADS/ACR category 2 benign bilateral mammographic and right breast sonographic findings.. This patient's Tyrer-Cuzick lifetime breast cancer risk assessment score is 6.3%. This mammogram was interpreted with the aid of an FDA-approved computer-aided detection system. The patient states she had a clinical breast exam in June of 2020. The patient letter being requested is M2. RECOMMENDATION: Repeat screening mammography recommended 1 year (for women over 40). Clinical follow-up. <Electronically signed by Elvis Barrow > 06/23/20 5624
== END ==
LOC: M WHC 08:31
PROVIDERS: ATTEND Nurse Practitioner Family
DX: N63.0 Unspecified lump in unspecified breast (principal)
CPT/HCPCS: 76642; 77066; G0279

== ENCOUNTER → 2020-06-23 | Outpatient (REF) | payer OTHER ==
[2020-06-23 11:26] LABS: ALBUMIN 3.8 GM/DL (3.2-5.2); ALT/SGPT 24 U/L (12-78); BILIRUBIN,TOTAL 0.3 MG/DL (0.2-1.0); BLOOD UREA NITROGEN 18 MG/DL (7-18); CALCIUM LEVEL 9.4 MG/DL (8.5-10.1); CARBON DIOXIDE LEVEL 31 MEQ/L (21-32); CHLORIDE LEVEL 107 MEQ/L (98-107); CHOLESTEROL LEVEL 260 MG/DL (<200); CHOLESTEROL RISK RATIO 5.098 (<5); CREATININE FOR GFR 0.74 MG/DL (0.55-1.30); GLOMERULAR FILTRATION RATE > 60.0 (>51); GLUCOSE, FASTING 88 MG/DL (70-100); HDL CHOLESTEROL 51 MG/DL (>40); LDL CHOLESTEROL 184 MG/DL (<100); NON-HDL-C 209 MG/DL; POTASSIUM SERUM 4.2 MEQ/L (3.5-5.1); SODIUM LEVEL 140 MEQ/L (136-145); TOTAL PROTEIN 6.9 GM/DL (6.4-8.2); TRIGLYCERIDES LEVEL 124 MG/DL (<150)
[2020-06-23 11:30] LABS: TOTAL 25(OH) VITAMIN D 72.5 NG/ML (30.0-100.0)
[2020-06-23 17:27] LABS: HEMOGLOBIN A1c 5.5 %
== END ==
LOC: M SFHCPLAZ 08:20
PROVIDERS: ATTEND Nurse Practitioner Adult Health
DX: Z00.00 Encounter for general adult medical examination without abnormal findings (principal); Z13.1 Encounter for screening for diabetes mellitus; E78.2 Mixed hyperlipidemia; E55.9 Vitamin D deficiency, unspecified

== ENCOUNTER 2020-06-29 10:22 | Emergency (ER) | payer OTHER ==
[~2020-06-29] VITALS: Ht 154.9 cm; Wt 85.5 kg
[~2020-06-29 10:22] MED LIST changes: -AMLO1TAB24; -FLUT1INH3; -LAMI25TA; -LOSA100T50; -VITA50005
[2020-06-29] MEDS ORDERED: AMLO1TAB24 (10:43)
[2020-06-29] MEDS ORDERED: VITA50005 (10:43)
[2020-06-29] MEDS ORDERED: LOSA100T50 (10:43)
[2020-06-29] MEDS ORDERED: LAMI25TA (10:43)
[2020-06-29] MEDS ORDERED: FLUT1INH3 (10:43)
[2020-06-29 12:21] VITALS: BP 144/80
--- NOTE | 2020-06-29 12:42 | REP ---
INDICATION: chest discomfort, elev BP COMPARISON: None. TECHNIQUE: PA/Lateral FINDINGS: Lungs: Clear, no infiltrate. Heart: Normal in size. Mediastinum: Mediastinal silhouette unremarkable. Pleural angles: Unremarkable.. Bones and soft tissues: Unremarkable. IMPRESSION: No acute pulmonary disease. <Electronically signed by Rios Osorio > 06/29/20 2031
[2020-06-29 12:57] LABS: BASO # 0.1 10^3/uL (0.0-0.2); BASO % 0.5 % (0.0-1.0); EOS # 0.3 10^3/uL (0.0-0.5); EOS % 2.6 % (0.0-3.0); HEMATOCRIT 41.1 % (36.0-47.0); HEMOGLOBIN 13.4 g/dl (12.0-15.5); LYMPH # 3.4 10^3/uL (1.5-5.0); MEAN CORPUSCULAR HEMOGLOBIN 29.5 pg (27.0-33.0); MEAN CORPUSCULAR HGB CONC 32.6 g/dl (32.0-36.5); MEAN CORPUSCULAR VOLUME 90.5 fl (80.0-96.0); MONO # 0.6 10^3/uL (0.0-0.8); MONO % 5.9 % (2.0-8.0); NEUTROPHILS # 5.8 10^3/uL (1.5-8.5); NEUTROPHILS % 57.5 % (36.0-66.0); PLATELET COUNT, AUTOMATED 355 10^3/uL (150-450); RED BLOOD COUNT 4.54 10^6/uL (4.00-5.40); WHITE BLOOD COUNT 10.2 10^3/uL (4.0-10.0)
[2020-06-29 13:27] LABS: ALBUMIN 4.2 GM/DL (3.2-5.2); ALT/SGPT 43 U/L (12-78); BILIRUBIN,DIRECT < 0.1 MG/DL (0.0-0.2); BILIRUBIN,TOTAL 0.3 MG/DL (0.2-1.0); BLOOD UREA NITROGEN 17 MG/DL (7-18); CALCIUM LEVEL 10.2 MG/DL (8.5-10.1); CARBON DIOXIDE LEVEL 31 MEQ/L (21-32); CHLORIDE LEVEL 105 MEQ/L (98-107); CK-MB VALUE MASS 2.7 NG/ML (<3.6); CPK CREATINE PHOSPHOKINASE 125 U/L (26-192); GLOMERULAR FILTRATION RATE > 60.0 (>51); GLUCOSE, FASTING 101 MG/DL (70-100); MB/CK RELATIVE INDEX 2.16 (< OR =4); POTASSIUM SERUM 5.1 MEQ/L (3.5-5.1); SODIUM LEVEL 138 MEQ/L (136-145); TOTAL PROTEIN 7.6 GM/DL (6.4-8.2); TROPONIN I < 0.02 NG/ML (< 0.10)
--- NOTE | 2020-06-29 17:40 | ECGEPIP ---
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
== END 2020-06-29 14:15 | disposition home or self-care (01) ==
LOC: M ED 10:22
DX: I10 Essential (primary) hypertension (principal); J45.909 Unspecified asthma, uncomplicated; F41.9 Anxiety disorder, unspecified; F32.9 Major depressive disorder, single episode, unspecified; Z79.899 Other long term (current) drug therapy; Z87.898 Personal history of other specified conditions; Z88.8 Allergy status to other drugs, medicaments and biological substances

== ENCOUNTER → 2020-06-29 | Outpatient (CLI) | payer OTHER ==
[~2020-06-29] MED LIST changes: +AMLO1TAB24; +FLUT1INH3; +LAMI25TA; +LOSA100T50; +VITA50005
--- NOTE | 2020-07-03 05:13 | ECWPNPC ---
PATIENT NAME: AMY DURHAM : 1960 GENDER: FEMALE VISIT DATE: 06/29/2020 DISCHARGE DATE: 06/29/20 1014 VISIT LOCKED DATE TIME: PHYSICIAN: HOLLY HERNANDEZ PHYSICIAN PAGER NO: ACTIVE RESOURCE: HOLLY HERNANDEZ REASON FOR APPOINTMENT 1. NECK AND RIGHT SCAPULAR AND UPPER BACK RESPONDS WELL TO TRIGGER POINT INJECTION HISTORY OF PRESENT ILLNESS GENERAL: HERE FOR FOLLOW-UP OF PERSISTENT NECK AND RIGHT ARM PAIN. CHIEF COMPLAINT IS RIGHT SHOULDER PAIN ESPECIALLY WITH RANGE OF JOINT MOTION OF THE SHOULDER. PATIENT STATES SHE WAS NOT EVALUATED BY PRIMARY CARE OR ORTHOPEDICS REGARDING SHOULDER PAIN THAT I HAD ADVISED HER TO DO AT HER VISIT IN MARCH. PATIENT'S BLOOD PRESSURE IS EXTREMELY HIGH TODAY. STATES THAT SHE HAS OCCASIONAL EPISODES OF CHEST PAIN. WE'VE ADVISED HER TO BE SEEN IN THE EMERGENCY ROOM TODAY.-. FALL RISK SCREENING: SCREENING : NO FALLS REPORTED IN THE LAST YEAR. PAIN SCREENING: PATIENT HAS A COMPLAINT OF ACUTE OR CHRONIC PAIN :YES LOCATION OF PAIN:NECK, UPPER BACK RIGHT AMR INTENSITY OF PAIN (SCALE OF 1 TO 10):6 WHAT DOES YOUR PAIN FEEL LIKE:ACHING, SHARP, THROBBING, SHOOTING DURATION:CONTINOUS PAIN IS INCREASED BY:ACTIVITIES PAIN IS DECREASED BY:OTHERS LAY DOWN NURSING NOTE: -. PAIN CENTER INTAKE QUESTIONS: DO YOU HAVE A HISTORY OF MRSA? :NO DO YOU TAKE A BLOOD THINNERS? :NO DO YOU HAVE ANY BLEEDING DISORDERS? :NO ANY NEW NUMBNESS OR WEAKNESS IN YOUR LEGS OR ARMS? :YES RIGHT ARM ANY PACEMAKER,DEFIBRILLATOR, OR DORSAL COLUMN STIMULATOR? :NO DO YOU HAVE ANY RASHES OR OPEN SORES? :NO ARE YOU ALLERGIC TO IV DYE? :NO ARE YOU DIABETIC? :NO ANY NEW PROBLEMS WITH YOUR MEDICATIONS? :NO HAVE YOU RECEIVED A VACCINE IN THE PAST 30 DAYS? :NO DO YOU PLAN TO RECEIVE A VACCINE IN THE NEXT 21 DAYS? :NO DO YOU NEED ANY PRESCRIPTION? :NO DO YOU TAKE ANY IMMUNOSUPPRESSIVE MEDICATIONS? :NO IS THERE A CHANCE YOU COULD BE ? :NO ARE YOU BREAST FEEDING? :NO CURRENT MEDICATIONS TAKING MAY USE PATIENT STATES SHE USES MEDICAL MARIJUANA OIL TAKING AMLODIPINE BESYLATE 5 MG TABLET 1 TABLET ORALLY ONCE A DAY TAKING FLUTICASONE-SALMETEROL(SENSOR) 232-14 MCG/ACT AEROSOL POWDER BREATH ACTIVATED 1 PUFF INHALATION BID TAKING ALBUTEROL SULFATE HFA 108 (90 BASE) MCG/ACT AEROSOL SOLUTION 1 PUFF NEEDED INHALATION EVERY 4 HRS TAKING LAMOTRIGINE 25 MG TABLET 1 TABLET ORALLY , NOTES: [facility] TAKING DOXYCYCLINE MONOHYDRATE 100 MG TABLET 1 TABLET ORALLY BID TAKING DIFLUCAN 150 MG TABLET 1 TABLET ORALLY DIRECTED 1 TODAY THEN 1 IN 10 DAYS TAKING DRISDOL 98218 UNIT CAPSULE 1 CAPSULE ORALLY WEEKLY TAKING NORVASC 5MG TABLET ORAL ORALLY DAILY TAKING LOSARTAN POTASSIUM 100 MG TABLET 1 TABLET ORALLY ONCE A DAY TAKING LAMOTRIGINE 25 MG TABLET 1 TABLET ORALLY ONCE A DAY MEDICATION LIST REVIEWED AND RECONCILED WITH THE PATIENT PAST MEDICAL HISTORY FOLLOWS WITH [facility]/NO LONGER FOLLOWS WITH [facility] TOBACCO ABUSE QUIT 04/23/2018 ANXIETY PER PATIENT ASTHMA A CHILD DEPRESSION MIGRAINE ARTHRITIS COLONOSCOPY 07/28/2015 SMALL INTERNAL HEMORRHOIDS ENTIRE COLON IS NORMAL 10 YEAR FOLLOW-UP SUGGESTED PFT'S 09/23/15 @ [facility] OBSTRUCTIVE DEFICIT REFUSES PNEUMONIA VACCINES 11/2016 REF 09/25 REF 03/2018 REF 05/2019 CERVICAL AND RIGHT SHOULDER PAIN ALLERGIES EFFEXOR: HIVES, RASH - ALLERGY PROZAC: HEART RACE - SIDE EFFECTS PAXIL: RASH - SIDE EFFECTS ZYBAN: HEADACHE - SIDE EFFECTS LISINOPRIL: SLEEPY - LACK OF THERAPEUTIC EFFECT SOCIAL HISTORY GENERAL: TOBACCO USE ARE YOU A:NONSMOKER QUIT June ADDITIONAL FINDINGS: TOBACCO [id number] SMOKER VAPORNO E-CIGARETTENO SMOKING CESSATION INFORMATION GIVEN06/14/2017 LATEX QUESTIONNAIRE LATEX ALLERGY : HAVE YOU EVER DEVELOPED ANY TYPE OF REACTION AFTER HANDLING LATEX PRODUCTS SUCH RUBBER GLOVES, CONDOMS, DIAPHRAGMS, BALLOONS, SOCKS, OR UNDERWEAR?NO LATEX ALLERGY : HAVE YOU EVER DEVELOPED ANY TYPE OF REACTION DURING OR AFTER DENTAL APPOINTMENT, VAGINAL/RECTAL EXAMINATION, SURGICAL PROCEDURE, OR ANY OTHER EXPOSURE?NO LATEX RISK : HAVE YOU EVER HAD ANY DIFFICULTY BREATHING OR HIVES AFTER EATING OR HANDLING ANY FRUITS, OR VEGETABLES; SUCH KIWI, BANANAS, STONE FRUITS, OR CHESTNUTSNO LATEX RISK : DO YOU HAVE A PREVIOUS PERSONAL HISTORY OF MORE THAN NINE SURGERIES, SPINA BIFIDA, OR REPEATED CATHERIZATIONS? NO LATEX RISK : ARE YOU FREQUENTLY EXPOSED TO LATEX PRODUCTS IN YOUR OCCUPATION?NO DATE ASKED : 06/29/2020 ALCOHOL USE: NO. LUNG CANCER SCREENING SMOKING STATUS:FORMER SMOKER IS THE PATIENT BETWEEN THE AGE OF 57 AND 79?YES HAVE YOU QUIT SMOKING WITHIN THE PAST 15 YEARS?YES HAS THE PATIENT EVER BEEN DIAGNOSED WITH LUNG CANCER?NO CREATE REFERRAL:GENERATE AND CREATE REFERRAL TO THE ONCOLOGY NURSE NAVIGATOR (SMP) LISTING USING THE LDCT SCAN PROCEDURE DISCLAIMER:PLEASE ADD DISCLAIMER FROM BROWSE SECTION OF THE NOTE BMI CARE GOAL FOLLOW-UP ABOVE NORMAL BMI FOLLOW-UPDIETARY MANAGEMENT EDUCATION, GUIDANCE, AND COUNSELING ALCOHOL SCREENING DID YOU HAVE A DRINK CONTAINING ALCOHOL IN THE PAST YEAR?YES HOW OFTEN DID YOU HAVE SIX OR MORE DRINKS ON ONE OCCASION IN THE PAST YEAR?NEVER (0 POINTS) HOW MANY DRINKS DID YOU HAVE ON A TYPICAL DAY WHEN YOU WERE DRINKING IN THE PAST YEAR?1 OR 2 (0 POINTS) HOW OFTEN DID YOU HAVE A DRINK CONTAINING ALCOHOL IN THE PAST YEAR?MONTHLY OR LESS (1 POINT) POINTS1 INTERPRETATIONNEGATIVE RECREATIONAL DRUG USE DRUG USE?YES HOW OFTEN AND HOW MUCH? PT USES MEDICAL MARIJUANA CAFFEINE CAFFEINE USE?YES YES HOW OFTEN AND HOW MUCH? 4 COFFEE DAILY SEXUAL HX HAD SEX IN THE LAST 12 MONTHS (VAGINAL, ORAL, OR ANAL)?NO HAVE YOU EVER HAD AN STD?NO HIV / HEP-C SCREENING HIV TEST OFFERED TO PATIENT:YES ALREADY DONE DATE OFFERED:07/20/2017 TEST ACCEPTED:NO HEP-C TEST OFFERED TO PATIENT:YES DATE OFFERED:07/20/2017 REASON:OTHER (DOCUMENT IN NOTE) ALREADY BEEN TESTED NEGATIVE TEST ACCEPTED:NO REASON:PATIENT DECLINED BROCHURE PROVIDED TO PATIENTYES 07/20/2017 ANGLICAN [id number] NONE LANGUAGE LANGUAGES SPOKEN:CITIZEN OF [place] EDUCATION LEVEL OF EDUCATION:NOT FINISHED HIGH SCHOOL JUST COMPLETED GED LEARNING BARRIERS / SPECIAL NEEDS CHANGE FROM LAST VISIT?NO BARRIERS TO LEARNING?NO HEARING IMPAIRED?NO VISION IMPAIRED?YES :CORRECTIVE LENSES COGNITIVELY IMPAIRED?NO READINESS TO LEARN?YES LEARNING PREFERENCES?NO LEARNING CAPABILITIES PRESENT?YES EMOTIONAL BARRIERS?NO SPECIAL DEVICES?YES :BRACE KNEE BRACES FOR LONG DISTANCE SUPERVISOR BLASTING NEEDED?NO DOMESTIC VIOLENCE DO YOU FEEL SAFE IN YOUR ENVIRONMENT?YES OCCUPATION: DOES NOT WORK DUE TO EMOTIONAL ISSUES. DIET: REGULAR. EXERCISE: WALKING. MARITAL STATUS: .. OTHERS AT HOME: NONE. - PFS REFERRAL NEEDED?NO CLERGY REFERRAL NEEDED?NO PUBLIC HEALTH REFERRAL NEEDED?NO WAS THE PROVIDER NOTIFIED OF ANY PERTINENT INFO?YES HAS THE PATIENT BEEN EDUCATED REGARDING HIS/HER PLAN OF CARE?YES HAS THE PATIENT BEEN EDUCATED REGARDING PAIN, THE RISK FOR PAIN, THE IMPORTANCE OF EFFECTIVE PAIN MANAGEMENT, AND THE PAIN ASSESSMENT PROCESS?YES HOUSING: MOVED INTO [facility]. ADVANCE DIRECTIVE ADVANCE DIRECTIVE DISCUSSED WITH PATIENT:YES STATES SHE DOES NOT HAVE ADVANCED DIRECTIVES BORN AND RASIED IN [place],. REVIEW OF SYSTEMS CONSTITUTIONAL: ANY RECENT FEVER NO . CHILLS NO . WEIGHT CHANGE OF UNKNOWN REASONS NO . GASTROENTEROLOGY: NEW UNEXPLAINABLE CHANGES IN BOWEL CONTROL NO . CONSTIPATION NO . GENITOURINARY: ANY NEW CHANGE IN BLADDER CONTROL? NO . NEUROLOGY: NEW ONSET DIZZINESS OR NEUROLOGICAL CHANGES NOT MENTIONED NO . NEW NUMBNESS OR PAIN PATTERNS NOT MENTIONED AND PERTINENT TO TODAY'S VISIT NO . CARDIOLOGY: NEW CHEST PRESSURE NO . PATIENT DENIES NO . RESPIRATORY: UNEXPLAINABLE COUGH NO . NEW SHORTNESS OF BREATH NO . VITAL SIGNS WT 189 LBS, HT 62 IN, BMI 34.56 INDEX, BP 222/106 MM HG, REPEAT BP 140/100 MANUAL, HR 82 /MIN, RR 18 /MIN, TEMP 98.0 F, OXYGEN SAT % 97%, SAFE IN ENV? (Y/N) YES, NA INITIALS AL 09:44T.TIMOTHY ROMERO NOFTY PROVIDER ABOUT BP. EXAMINATION GENERAL EXAMINATION: GENERALNO ACUTE DISTRESS, WELL NOURISHED AND HYDRATED. VAGUE HISTORIAN. PSYCHAPPROPRIATE MOOD AND AFFECT . LUNGS:CLEAR TO AUSCULTATION BILATERALLY, NO WHEEZES, RHONCHI, RALES. HEART:NO MURMURS, REGULAR RATE AND RHYTHM. ASSESSMENTS MYALGIA, OTHER SITE - M79.18 (PRIMARY) OTHER CHRONIC PAIN - G89.29 PAIN IN RIGHT SHOULDER - M25.511 TREATMENT MYALGIA, OTHER SITE NOTES: ADVISED TO BE EVALUATED IN ER FOR HIGH BLOOD PRESSURE AND REPORTS OF CHEST PAIN. PROCEDURE CODES FA211 ESTABILISHED PATIENT [facility] CHARGE DISPOSITION & COMMUNICATION FOLLOW UP 2 MONTHS (REASON: RIGHT SHOULDER PAIN ,RIGHT NECK PAIN) ELECTRONICALLY SIGNED BY MONROE MEJÍA ON 07/02/2020 AT 09:33 AM EDT DISCLAIMER : THIS IS A VISIT SUMMARY EXTRACTED FROM THE [employer] CHART. IT IS NOT A COPY OF THE [employer] PROGRESS NOTE. GERBER
== END ==
LOC: M PAIN 09:15
PROVIDERS: ATTEND Nurse Practitioner Family
DX: M79.18 Myalgia, other site (principal); M25.511 Pain in right shoulder; J45.909 Unspecified asthma, uncomplicated; G43.909 Migraine, unspecified, not intractable, without status migrainosus; Z86.59 Personal history of other mental and behavioral disorders; Z87.891 Personal history of nicotine dependence; Z88.8 Allergy status to other drugs, medicaments and biological substances; Z79.899 Other long term (current) drug therapy

== ENCOUNTER → 2020-07-20 | Outpatient (CLI) | payer OTHER ==
[~2020-07-20] MED LIST changes: +AMLO1TAB24; +FLUT1INH3; +LAMI25TA; +LOSA100T50; +PROHANCE 279.3MG/ML 15ML VIAL As Ordered ONE; +PROHANCE 279.3MG/ML 5ML VIAL As Ordered ONE; +VITA50005
--- NOTE | 2020-07-21 08:58 | REP ---
INDICATION: PAIN IN RIGHT SHOULDER. COMPARISON: None TECHNIQUE: Coronal oblique T1 and fat suppressed T2. Sagittal oblique fat suppressed T2. Axial [id number]-[id number] and T2 FLASH. FINDINGS: Mild hypertrophic degenerative changes seen involving the acromioclavicular joint. The acromion process is type 2. Patchy and linear T2 hyper signal is seen throughout the supraspinatus tendon some of which appears to be full-thickness. The supraspinatus muscle is atrophied. Patchy and linear T2 hyper signal is seen throughout the subscapularis tendon. Mild T2 hyper signal is seen in the infraspinatus tendon. Linear T2 hyper signal is seen within the biceps labral complex suggesting an element of fraying. The biceps tendon resides within the bicipital groove. There is no glenohumeral joint effusion. IMPRESSION: 1. There is supraspinatus tendinitis/tendinosis. A partial full-thickness tear cannot be ruled out. 2. There is subscapularis and infraspinatus tendinitis/tendinosis. 3. Mild AC joint DJD. 4. There is biceps labral complex fraying. 5. Other findings as described above. <Electronically signed by Bhavik Rausch > 07/21/20 2540
== END ==
LOC: M RAD 16:40
PROVIDERS: ATTEND Nurse Practitioner Adult Health
DX: M75.91 Shoulder lesion, unspecified, right shoulder (principal); M19.011 Primary osteoarthritis, right shoulder

== ENCOUNTER → 2020-07-23 | Outpatient (CLI) | payer OTHER ==
[~2020-07-23] MED LIST changes: -PROHANCE 279.3MG/ML 15ML VIAL As Ordered ONE; -PROHANCE 279.3MG/ML 5ML VIAL As Ordered ONE
--- NOTE | 2020-07-23 15:04 | REP ---
INDICATION: LUNG NODULE. COMPARISON: Comparison chest CT studies are reviewed from January 16, 2020 and June 20, 2019. A left upper lobe non solid nodule was observed.. TECHNIQUE: Helical scanning is acquired. 3 mm axial images are generated. Coronal and sagittal MPR and coronal MIP images are generated. FINDINGS: The previously noted 6 mm noncalcified and possibly cavitary nodule seen in the left upper lobe is again noted. It appears unchanged in the interval since prior study June 20, 2019. Still measures 6 mm in greatest diameter. There is some central radiolucency, less than solid appearance. No new pulmonary nodule is seen. No mass or infiltrate is seen. There is no evidence of pleural or pericardial effusion. No hilar or mediastinal mass or adenopathy has developed. No adrenal lesion is observed on either side. The visualized upper abdominal structures are unremarkable. No bony lesion is seen. IMPRESSION: No change in the less than solid 6 mm nodule left upper lobe. 6 month follow-up chest CT suggested. <Electronically signed by Elvis Barrow > 07/23/20 1500
== END ==
LOC: M RAD 08:42
PROVIDERS: ATTEND Nurse Practitioner Adult Health
DX: R91.1 Solitary pulmonary nodule (principal)

== ENCOUNTER → 2020-08-18 | Outpatient (CLI) | payer OTHER ==
--- NOTE | 2020-08-20 01:59 | ECWPNPC ---
PATIENT NAME: AMY DURHAM : 1960 GENDER: FEMALE VISIT DATE: 08/18/2020 DISCHARGE DATE: 08/18/20945 VISIT LOCKED DATE TIME: PHYSICIAN: HOLLY HERNANDEZ PHYSICIAN PAGER NO: ACTIVE RESOURCE: HOLLY HERNANDEZ REASON FOR APPOINTMENT 1. RIGHT SHOULDER, RIGHT NECK PAIN HISTORY OF PRESENT ILLNESS GENERAL: HERE FOR FOLLOW-UP OF RIGHT SHOULDER PAIN. LAST VISIT A FEW MONTHS AGO WE SENT HER TO THE ER DUE TO EXTREMELY HIGH BLOOD PRESSURE AND COMPLAINTS OF CHEST PAIN. SHE HAS SINCE BEEN SEEN BY PRIMARY CARE PROVIDER LYRIC BAUTISTA AT [facility] AND HAD MEDICATION ADJUSTMENTS FOR BLOOD PRESSURE. BLOOD PRESSURE IS BETTER. DENIES CHEST PAINS. CONTINUES WITH SEVERE RIGHT SHOULDER PAIN. REVIEWED MRI THAT WAS DONE A WEEK AGO OF RIGHT SHOULDER. SHOWING TENDINITIS. SHE WAS REFERRED TO [facility] BY PRIMARY CARE BUT HAS NOT HEARD YET FOR AN APPOINTMENT. REPORTS EXTREME DIFFICULTY USING RIGHT ARM. SHE IS RIGHT HANDED. DISCUSSED MEDICATION TRIAL OF TORADOL FOR 5 DAYS FOR INFLAMMATION. REALLY NEEDS TO HAVE THIS LOOKED AT BY ORTHOPEDIC GROUP BEFORE WE CAN INTERVENE. - -. FALL RISK SCREENING: SCREENING : NO FALLS REPORTED IN THE LAST YEAR, 3 OR MORE FALL THIS YEAR, NO INJURIES , DID NOT GO TO THE ER. PAIN SCREENING: PATIENT HAS A COMPLAINT OF ACUTE OR CHRONIC PAIN :YES LOCATION OF PAIN:HEAD, RIGHT SHOULDER, LOW BACK INTENSITY OF PAIN (SCALE OF 1 TO 10):4 WHAT DOES YOUR PAIN FEEL LIKE:ACHING, BURNING, SHARP, SHOOTING DURATION:ONLY WITH SPECIFIC ACTIVITIES PAIN IS INCREASED BY:ACTIVITIES, OTHERS STANDING PAIN IS DECREASED BY:OTHERS RESTING NURSING NOTE: - -. PAIN CENTER INTAKE QUESTIONS: DO YOU HAVE A HISTORY OF MRSA? :NO DO YOU TAKE A BLOOD THINNERS? :NO DO YOU HAVE ANY BLEEDING DISORDERS? :NO ANY NEW NUMBNESS OR WEAKNESS IN YOUR LEGS OR ARMS? :YES RIGHT ARM ANY PACEMAKER,DEFIBRILLATOR, OR DORSAL COLUMN STIMULATOR? :NO DO YOU HAVE ANY RASHES OR OPEN SORES? :NO ARE YOU ALLERGIC TO IV DYE? :NO NOT SURE ARE YOU DIABETIC? :NO ANY NEW PROBLEMS WITH YOUR MEDICATIONS? :NO HAVE YOU RECEIVED A VACCINE IN THE PAST 30 DAYS? :NO DO YOU PLAN TO RECEIVE A VACCINE IN THE NEXT 21 DAYS? :NO DO YOU NEED ANY PRESCRIPTION? :NO DO YOU TAKE ANY IMMUNOSUPPRESSIVE MEDICATIONS? :NO DO YOU HAVE ANY KIDNEY OR LIVER DISEASE? :NO IS THERE A CHANCE YOU COULD BE ? :NO ARE YOU BREAST FEEDING? :NO CURRENT MEDICATIONS TAKING MAY USE PATIENT STATES SHE USES MEDICAL MARIJUANA OIL TAKING LAMOTRIGINE 25 MG TABLET 1 TABLET ORALLY , [facility] T[facility] FLUTICASONE-SALMETEROL(SENSOR) 232-14 MCG/ACT AEROSOL POWDER BREATH ACTIVATED 1 PUFF INHALATION BID TAKING NORVASC 5MG TABLET ORAL ORALLY DAILY TAKING IRBESARTAN 300 MG TABLET 1 TABLET ORALLY ONCE A DAY TAKING DRISDOL 60044 UNIT CAPSULE 1 CAPSULE ORALLY WEEKLY TAKING ALBUTEROL SULFATE HFA 108 (90 BASE) MCG/ACT AEROSOL SOLUTION 1 PUFF NEEDED INHALATION EVERY 4 HRS MEDICATION LIST REVIEWED AND RECONCILED WITH THE PATIENT PAST MEDICAL HISTORY FOLLOWS WITH [facility]/NO LONGER FOLLOWS WITH [facility] TOBACCO ABUSE QUIT 04/23/2018 ANXIETY PER PATIENT ASTHMA A CHILD DEPRESSION MIGRAINE ARTHRITIS COLONOSCOPY 07/28/2015 SMALL INTERNAL HEMORRHOIDS ENTIRE COLON IS NORMAL 10 YEAR FOLLOW-UP SUGGESTED PFT'S 09/23/15 @ [facility] OBSTRUCTIVE DEFICIT REFUSES PNEUMONIA VACCINES 11/2016 REF 09/25 REF 03/2018 REF 05/2019,08/28 CERVICAL AND RIGHT SHOULDER PAIN ALLERGIES EFFEXOR: HIVES, RASH - ALLERGY PROZAC: HEART RACE - SIDE EFFECTS PAXIL: RASH - SIDE EFFECTS ZYBAN: HEADACHE - SIDE EFFECTS LISINOPRIL: SLEEPY - LACK OF THERAPEUTIC EFFECT SURGICAL HISTORY 1984, 1985 COLONOSCOPY 07/28/2015 REMOVED ALL OF TEETH 04/06/2016 [facility] HYSTEROSCOPY [address] DR MARQUEZ 10/01/15 POLYP REMOVED SOCIAL HISTORY GENERAL: TOBACCO USE ARE YOU A:NONSMOKER QUIT June SMOKING CESSATION INFORMATION GIVEN06/14/2017 ADDITIONAL FINDINGS: TOBACCO GEQ-[id number] SMOKER VAPORNO E-CIGARETTENO LATEX QUESTIONNAIRE LATEX ALLERGY : HAVE YOU EVER DEVELOPED ANY TYPE OF REACTION AFTER HANDLING LATEX PRODUCTS SUCH RUBBER GLOVES, CONDOMS, DIAPHRAGMS, BALLOONS, SOCKS, OR UNDERWEAR?NO LATEX ALLERGY : HAVE YOU EVER DEVELOPED ANY TYPE OF REACTION DURING OR AFTER DENTAL APPOINTMENT, VAGINAL/RECTAL EXAMINATION, SURGICAL PROCEDURE, OR ANY OTHER EXPOSURE?NO LATEX RISK : HAVE YOU EVER HAD ANY DIFFICULTY BREATHING OR HIVES AFTER EATING OR HANDLING ANY FRUITS, OR VEGETABLES; SUCH KIWI, BANANAS, STONE FRUITS, OR CHESTNUTSNO LATEX RISK : DO YOU HAVE A PREVIOUS PERSONAL HISTORY OF MORE THAN NINE SURGERIES, SPINA BIFIDA, OR REPEATED CATHERIZATIONS? NO LATEX RISK : ARE YOU FREQUENTLY EXPOSED TO LATEX PRODUCTS IN YOUR OCCUPATION?NO DATE ASKED : 08/18/2020 ALCOHOL USE: NO. LUNG CANCER SCREENING SMOKING STATUS:FORMER SMOKER IS THE PATIENT BETWEEN THE AGE OF 57 AND 79?YES HAVE YOU QUIT SMOKING WITHIN THE PAST 15 YEARS?YES HAS THE PATIENT EVER BEEN DIAGNOSED WITH LUNG CANCER?NO CREATE REFERRAL:GENERATE AND CREATE REFERRAL TO THE ONCOLOGY NURSE NAVIGATOR (SMP) LISTING USING THE LDCT SCAN PROCEDURE DISCLAIMER:PLEASE ADD DISCLAIMER FROM BROWSE SECTION OF THE NOTE BMI CARE GOAL FOLLOW-UP ABOVE NORMAL BMI FOLLOW-UPDIETARY MANAGEMENT EDUCATION, GUIDANCE, AND COUNSELING ALCOHOL SCREENING DID YOU HAVE A DRINK CONTAINING ALCOHOL IN THE PAST YEAR?YES HOW OFTEN DID YOU HAVE SIX OR MORE DRINKS ON ONE OCCASION IN THE PAST YEAR?NEVER (0 POINTS) HOW MANY DRINKS DID YOU HAVE ON A TYPICAL DAY WHEN YOU WERE DRINKING IN THE PAST YEAR?1 OR 2 (0 POINTS) HOW OFTEN DID YOU HAVE A DRINK CONTAINING ALCOHOL IN THE PAST YEAR?MONTHLY OR LESS (1 POINT) POINTS1 INTERPRETATIONNEGATIVE RECREATIONAL DRUG USE DRUG USE?YES HOW OFTEN AND HOW MUCH? PT USES MEDICAL MARIJUANA CAFFEINE CAFFEINE USE?YES YES HOW OFTEN AND HOW MUCH? 4 COFFEE DAILY SEXUAL HX HAD SEX IN THE LAST 12 MONTHS (VAGINAL, ORAL, OR ANAL)?NO HAVE YOU EVER HAD AN STD?NO HIV / HEP-C SCREENING HIV TEST OFFERED TO PATIENT:YES ALREADY DONE DATE OFFERED:07/20/2017 TEST ACCEPTED:NO HEP-C TEST OFFERED TO PATIENT:YES DATE OFFERED:07/20/2017 REASON:OTHER (DOCUMENT IN NOTE) ALREADY BEEN TESTED NEGATIVE TEST ACCEPTED:NO REASON:PATIENT DECLINED BROCHURE PROVIDED TO PATIENTYES 07/20/2017 TAOISM [id number] NONE LANGUAGE LANGUAGES SPOKEN:[place] EDUCATION LEVEL OF EDUCATION:NOT FINISHED HIGH SCHOOL JUST COMPLETED GED LEARNING BARRIERS / SPECIAL NEEDS CHANGE FROM LAST VISIT?NO BARRIERS TO LEARNING?NO HEARING IMPAIRED?NO VISION IMPAIRED?YES :CORRECTIVE LENSES COGNITIVELY IMPAIRED?NO READINESS TO LEARN?YES LEARNING PREFERENCES?NO LEARNING CAPABILITIES PRESENT?YES EMOTIONAL BARRIERS?NO SPECIAL DEVICES?YES :BRACE KNEE BRACES FOR LONG DISTANCE AUDIO RECORDING ENGINEER NEEDED?NO DOMESTIC VIOLENCE DO YOU FEEL SAFE IN YOUR ENVIRONMENT?YES OCCUPATION: DOES NOT WORK DUE TO EMOTIONAL ISSUES. DIET: REGULAR. EXERCISE: WALKING. MARITAL STATUS: .. OTHERS AT HOME: NONE. - PFS REFERRAL NEEDED?NO CLERGY REFERRAL NEEDED?NO PUBLIC HEALTH REFERRAL NEEDED?NO WAS THE PROVIDER NOTIFIED OF ANY PERTINENT INFO?YES HAS THE PATIENT BEEN EDUCATED REGARDING HIS/HER PLAN OF CARE?YES HAS THE PATIENT BEEN EDUCATED REGARDING PAIN, THE RISK FOR PAIN, THE IMPORTANCE OF EFFECTIVE PAIN MANAGEMENT, AND THE PAIN ASSESSMENT PROCESS?YES HOUSING: MOVED INTO [facility] HOUS[facility]. ADVANCE DIRECTIVE ADVANCE DIRECTIVE DISCUSSED WITH PATIENT:YES STATES SHE DOES NOT HAVE ADVANCED DIRECTIVES BORN AND RASIED IN [place],. HOSPITALIZATION/MAJOR DIAGNOSTIC PROCEDURE [facility]- 06/1983 [facility] 02/1985 REVIEW OF SYSTEMS CONSTITUTIONAL: ANY RECENT FEVER NO . CHILLS NO . WEIGHT CHANGE OF UNKNOWN REASONS NO . GASTROENTEROLOGY: NEW UNEXPLAINABLE CHANGES IN BOWEL CONTROL NO . CONSTIPATION NO . GENITOURINARY: ANY NEW CHANGE IN BLADDER CONTROL? NO . NEUROLOGY: NEW ONSET DIZZINESS OR NEUROLOGICAL CHANGES NOT MENTIONED NO . NEW NUMBNESS OR PAIN PATTERNS NOT MENTIONED AND PERTINENT TO TODAY'S VISIT NO . CARDIOLOGY: NEW CHEST PRESSURE NO . PATIENT DENIES NO . RESPIRATORY: UNEXPLAINABLE COUGH NO . NEW SHORTNESS OF BREATH NO . VITAL SIGNS WT 188.2 LBS, HT 62 IN, BMI 34.42 INDEX, BP 122/82 MM HG, HR 69 /MIN, RR 18 /MIN, TEMP 97.2 F, OXYGEN SAT % 97%, SAFE IN ENV? (Y/N) YES, NA INITIALS AW 0855T.TIMOTHY ROMERO. EXAMINATION GENERAL EXAMINATION: GENERALNO ACUTE DISTRESS, WELL NOURISHED AND HYDRATED. PSYCHAPPROPRIATE MOOD AND AFFECT . NECK:NO LYMPHADENOPATHY, SUPPLE, NO THYROMEGALLY. LUNGS:CLEAR TO AUSCULTATION BILATERALLY, NO WHEEZES, RHONCHI, RALES. HEART:NO MURMURS, REGULAR RATE AND RHYTHM. MUSCULOSKELETAL:TENDERNESS NOTED OVER RIGHT SHOULDER. LIMITED RANGE OF JOINT MOTION. LESS THAN 45 ABDUCTION BEFORE SEVERE INCREASE IN PAIN OCCURS . DIAGNOSTIC TESTS REVIEWEDMRI RIGHT SHOULDER . ASSESSMENTS TENDINITIS OF RIGHT SHOULDER - M77.8 (PRIMARY) TREATMENT TENDINITIS OF RIGHT SHOULDER START KETOROLAC TROMETHAMINE TABLET, 10 MG, 1 TABLET WITH FOOD OR MILK NEEDED, ORALLY, EVERY 6 HRS, 5 DAY(S), 20 NOTES: ADVISED PATIENT TO FOLLOW-UP ON [facility] WE WILL LOOK INTO FURTHER INTERVENTIONAL THERAPY ONCE SHE HAS BEEN EVALUATED BY ORTHOPEDIC SERVICE. TODAY I'VE ADVISED HER TO START TORADOL 10 MG TABLET 1 EVERY 6 HOURS X5 DAYS FOR INFLAMMATION AND PAIN OF THE RIGHT SHOULDER. ADVISED HER TO TAKE THIS WITH A SMALL AMOUNT OF FOOD TO AVOID GI UPSET. PRINTED INFORMATION ON NEW MEDICATION FOR PATIENT MALOU ROMERO. PROCEDURE CODES FA211 ESTABILISHED PATIENT [facility] CHARGE DISPOSITION & COMMUNICATION FOLLOW UP 6-8WKS (REASON: RIGHT SHOULDER PAIN AFTER ORTHOPEDIC EXAM) ELECTRONICALLY SIGNED BY MONROE MEJÍA ON 08/19/2020 AT 01:44 PM EDT DISCLAIMER : THIS IS A VISIT SUMMARY EXTRACTED FROM THE [employer] CHART. IT IS NOT A COPY OF THE [employer] PROGRESS NOTE. GERBER
== END ==
LOC: M PAIN 09:30
PROVIDERS: ATTEND Nurse Practitioner Family
DX: M77.8 Other enthesopathies, not elsewhere classified (principal); G43.909 Migraine, unspecified, not intractable, without status migrainosus; Z86.59 Personal history of other mental and behavioral disorders; Z87.891 Personal history of nicotine dependence; Z88.8 Allergy status to other drugs, medicaments and biological substances; Z79.899 Other long term (current) drug therapy

== ENCOUNTER → 2020-08-26 | Outpatient (CLI) | payer OTHER ==
[2020-08-26 10:21] LABS: BASO % 0.4 % (0.0-1.0); EOS # 0.3 10^3/uL (0.0-0.5); EOS % 3.5 % (0.0-3.0); HEMATOCRIT 40.7 % (36.0-47.0); HEMOGLOBIN 12.8 g/dl (12.0-15.5); LYMPH # 3.3 10^3/uL (1.5-5.0); LYMPH % 33.9 % (24.0-44.0); MEAN CORPUSCULAR HEMOGLOBIN 28.8 pg (27.0-33.0); MEAN CORPUSCULAR HGB CONC 31.4 g/dl (32.0-36.5); MEAN CORPUSCULAR VOLUME 91.5 fl (80.0-96.0); MONO # 0.7 10^3/uL (0.0-0.8); NEUTROPHILS # 5.4 10^3/uL (1.5-8.5); NEUTROPHILS % 54.9 % (36.0-66.0); PLATELET COUNT, AUTOMATED 331 10^3/uL (150-450); RED BLOOD COUNT 4.45 10^6/uL (4.00-5.40); WHITE BLOOD COUNT 9.9 10^3/uL (4.0-10.0)
[2020-08-26 11:04] LABS: ALBUMIN 3.9 GM/DL (3.2-5.2); ALT/SGPT 27 U/L (12-78); BILIRUBIN,TOTAL 0.3 MG/DL (0.2-1.0); BLOOD UREA NITROGEN 13 MG/DL (7-18); CALCIUM LEVEL 9.4 MG/DL (8.5-10.1); CARBON DIOXIDE LEVEL 28 MEQ/L (21-32); CHLORIDE LEVEL 107 MEQ/L (98-107); CREATININE FOR GFR 0.71 MG/DL (0.55-1.30); GLOMERULAR FILTRATION RATE > 60.0 (>51); GLUCOSE, FASTING 90 MG/DL (70-100); POTASSIUM SERUM 4.5 MEQ/L (3.5-5.1); SODIUM LEVEL 140 MEQ/L (136-145); TOTAL PROTEIN 7.1 GM/DL (6.4-8.2); VITAMIN B12 LEVEL 947 PG/ML (247-911)
[2020-08-26 11:05] LABS: FOLATE 16.1 NG/ML (>5.4)
== END ==
LOC: M PLALAB 08:58
PROVIDERS: ATTEND Psychiatry & Neurology Psychiatry
DX: F31.9 Bipolar disorder, unspecified (principal)

== ENCOUNTER → 2020-09-30 | Outpatient (CLI) | payer OTHER ==
[~2020-09-30] MED LIST changes: +ERGO500029; +ISOVUE-300 61% 50ML VIAL As Ordered ONE; +LIDOCAINE 1% MDV 20ML VIAL As Ordered ONE; +TRIAMCINOLONE ACETONIDE SUSP 40 MG/ML VIAL (J3301) As Ordered ONE; -VITA50005
--- NOTE | 2020-09-30 16:47 | REP ---
INDICATION: ADHESIVE CAPSULITIS OR RT SHOULDER. COMPARISON: None TECHNIQUE: The procedure was performed by CORY Tyson, under the direct supervision of Dr. Osorio. The benefits and risks of the procedure were explained to the patient, and an informed consent was obtained. Directly prior to the start of the procedure, a formal time-out was completed in the procedure room. The right glenohumeral joint space was localized using fluoroscopic guidance. The skin was prepped and draped in a sterile fashion. Approximately 5 mL of 1% Lidocaine 10 mg/ml was used as a local anesthetic. Using fluoroscopic guidance, a #22 gauge spinal needle was inserted and advanced into the right glenohumeral joint space. Approximately 1 mL of Isovue 300 was injected to verify placement. Six mL of a solution containing 5 mL 1% lidocaine 10 mg/ml and 1 mL Kenalog 40 milligrams/milliliter was injected into the joint space. The needle was removed and hemostasis was achieved. FINDINGS: The patient tolerated the procedure well and there were no immediate complications. IMPRESSION: 1. Fluoroscopically guided intra-articular right shoulder pain injection. 0.2 minutes of fluoroscopy time was utilized for this procedure. Some fluoroscopic images are performed with last image hold technology. These images require no additional radiation. <Electronically signed by Suki Gould > 09/30/20 [id number] <Electronically signed by Rios Osorio > 09/30/20 0158
== END ==
LOC: M RADPRO 09:54
PROVIDERS: ATTEND Orthopaedic Surgery
DX: M75.01 Adhesive capsulitis of right shoulder (principal)
CPT/HCPCS: 20610; 77002; J3301; Q9967

== ENCOUNTER → 2020-10-06 | Outpatient (CLI) | payer OTHER ==
[~2020-10-06] MED LIST changes: -ISOVUE-300 61% 50ML VIAL As Ordered ONE; -LIDOCAINE 1% MDV 20ML VIAL As Ordered ONE; -TRIAMCINOLONE ACETONIDE SUSP 40 MG/ML VIAL (J3301) As Ordered ONE
--- NOTE | 2020-10-08 04:19 | ECWPNPC ---
PATIENT NAME: AMY DURHAM : 1960 GENDER: FEMALE VISIT DATE: 10/06/2020 DISCHARGE DATE: 10/06/20 1432 VISIT LOCKED DATE TIME: PHYSICIAN: HOLLY HERNANDEZ PHYSICIAN PAGER NO: ACTIVE RESOURCE: HOLLY HERNANDEZ REASON FOR APPOINTMENT 1. RIGHT SHOULDER PAIN AFTER ORTHOPEDIC EXAM HISTORY OF PRESENT ILLNESS GENERAL: HERE FOR FOLLOW-UP OF CHRONIC NECK PAIN. NECK PAIN HAS RETURNED. PAIN IS AGGRAVATED WITH RANGE OF JOINT MOTION OF HER NECK OR ARMS. PAIN IS MAINLY ON THE RIGHT SIDE. CURRENTLY UNDER CARE WITH [facility] RIGHT SHOULDER. HAD STEREOTACTIC STEROID INJECTION TO RIGHT SHOULDER LAST WEEK. REPORTING IMPROVED RANGE OF MOTION OF RIGHT ARM SINCE INJECTION. SHE WILL BE STARTING PHYSICAL THERAPY FOR FROZEN RIGHT SHOULDER IN THE NEAR FUTURE. DID VERY WELL WITH TRIGGER POINT INJECTIONS THAT WE DID TO HER NECK AND THORACIC AREA IN MARCH. PAIN HAS BEGUN TO RETURN IN THOSE AREAS OVER THE PAST 6 WEEKS. -. FALL RISK SCREENING: SCREENING COUPLE FALL THIS YEAR, NO MAJOR INJURIES. PAIN SCREENING: PATIENT HAS A COMPLAINT OF ACUTE OR CHRONIC PAIN :YES LOCATION OF PAIN:RIGHT SHOULDER INTENSITY OF PAIN (SCALE OF 1 TO 10):4 WHAT DOES YOUR PAIN FEEL LIKE:CONTINOUS, OTHER STIFFNESS DURATION:CONTINOUS, CONSTANT, ALL DAY PAIN IS INCREASED BY:OTHERS PAIN IS DECREASED BY:USE OF PAIN MEDICATIONS RESTING NURSING NOTE: -. PAIN CENTER INTAKE QUESTIONS: DO YOU HAVE A HISTORY OF MRSA? :NO DO YOU TAKE A BLOOD THINNERS? :NO DO YOU HAVE ANY BLEEDING DISORDERS? :NO ANY NEW NUMBNESS OR WEAKNESS IN YOUR LEGS OR ARMS? :YES RIGHT ARM ANY PACEMAKER,DEFIBRILLATOR, OR DORSAL COLUMN STIMULATOR? :NO DO YOU HAVE ANY RASHES OR OPEN SORES? :NO ARE YOU ALLERGIC TO IV DYE? :NO NOT SURE ARE YOU DIABETIC? :NO ANY NEW PROBLEMS WITH YOUR MEDICATIONS? :NO HAVE YOU RECEIVED A VACCINE IN THE PAST 30 DAYS? :NO DO YOU PLAN TO RECEIVE A VACCINE IN THE NEXT 21 DAYS? :NO DO YOU NEED ANY PRESCRIPTION? :NO DO YOU TAKE ANY IMMUNOSUPPRESSIVE MEDICATIONS? :NO DO YOU HAVE ANY KIDNEY OR LIVER DISEASE? :NO IS THERE A CHANCE YOU COULD BE ? :NO ARE YOU BREAST FEEDING? :NO CURRENT MEDICATIONS TAKING MAY USE PATIENT STATES SHE USES [facility]ICAL [facility] OIL TAKING LAMOTRIGINE 25 MG TABLET 1 TABLET ORALLY , NOTES: [facility] TAKING FLUTICASONE-SALMETEROL(SENSOR) 232-14 MCG/ACT AEROSOL POWDER BREATH ACTIVATED 1 PUFF INHALATION BID TAKING NORVASC 5MG TABLET ORAL ORALLY DAILY TAKING IRBESARTAN 300 MG TABLET 1 TABLET ORALLY ONCE A DAY TAKING ALBUTEROL SULFATE HFA 108 (90 BASE) MCG/ACT AEROSOL SOLUTION 1 PUFF NEEDED INHALATION EVERY 4 HRS NOT-TAKING DRISDOL 59808 UNIT CAPSULE 1 CAPSULE ORALLY WEEKLY NOT-TAKING KETOROLAC TROMETHAMINE 10 MG TABLET 1 TABLET WITH FOOD OR MILK NEEDED ORALLY EVERY 6 HRS MEDICATION LIST REVIEWED AND RECONCILED WITH THE PATIENT PAST MEDICAL HISTORY FOLLOWS WITH [facility]/NO LONGER FOLLOWS WITH [facility] TOBACCO ABUSE QUIT 04/23/2018 ANXIETY PER PATIENT ASTHMA A CHILD DEPRESSION MIGRAINE ARTHRITIS COLONOSCOPY 07/28/2015 SMALL INTERNAL HEMORRHOIDS ENTIRE COLON IS NORMAL 10 YEAR FOLLOW-UP SUGGESTED PFT'S 09/23/15 @ [facility] OBSTRUCTIVE DEFICIT REFUSES PNEUMONIA VACCINES 11/2016 REF 09/25 REF 03/2018 REF 05/2019,08/28 CERVICAL AND RIGHT SHOULDER PAIN ER DUE TO EXTREMELY HIGH BLOOD PRESSURE AND COMPLAINTS OF CHEST PAIN ALLERGIES EFFEXOR: HIVES, RASH - ALLERGY PROZAC: HEART RACE - SIDE EFFECTS PAXIL: RASH - SIDE EFFECTS ZYBAN: HEADACHE - SIDE EFFECTS LISINOPRIL: SLEEPY - LACK OF THERAPEUTIC EFFECT SURGICAL HISTORY 1984, 1985 COLONOSCOPY 07/28/2015 REMOVED ALL OF TEETH 04/06/2016 [facility] HYSTEROSCOPY [address] MARQUEZ 10/01/15 POLYP REMOVED SOCIAL HISTORY GENERAL: TOBACCO USE ARE YOU A:NONSMOKER QUIT June SMOKING CESSATION INFORMATION GIVEN06/14/2017 ADDITIONAL FINDINGS: TOBACCO QNS-PECLHD-[id number] SMOKER VAPORNO E-CIGARETTENO LATEX QUESTIONNAIRE LATEX ALLERGY : HAVE YOU EVER DEVELOPED ANY TYPE OF REACTION AFTER HANDLING LATEX PRODUCTS SUCH RUBBER GLOVES, CONDOMS, DIAPHRAGMS, BALLOONS, SOCKS, OR UNDERWEAR?NO LATEX ALLERGY : HAVE YOU EVER DEVELOPED ANY TYPE OF REACTION DURING OR AFTER DENTAL APPOINTMENT, VAGINAL/RECTAL EXAMINATION, SURGICAL PROCEDURE, OR ANY OTHER EXPOSURE?NO LATEX RISK : HAVE YOU EVER HAD ANY DIFFICULTY BREATHING OR HIVES AFTER EATING OR HANDLING ANY FRUITS, OR VEGETABLES; SUCH KIWI, BANANAS, STONE FRUITS, OR CHESTNUTSNO LATEX RISK : DO YOU HAVE A PREVIOUS PERSONAL HISTORY OF MORE THAN NINE SURGERIES, SPINA BIFIDA, OR REPEATED CATHERIZATIONS? NO LATEX RISK : ARE YOU FREQUENTLY EXPOSED TO LATEX PRODUCTS IN YOUR OCCUPATION?NO DATE ASKED : 10/06/2020 ALCOHOL USE: NO. LUNG CANCER SCREENING SMOKING STATUS:FORMER SMOKER IS THE PATIENT BETWEEN THE AGE OF 57 AND 79?YES HAVE YOU QUIT SMOKING WITHIN THE PAST 15 YEARS?YES HAS THE PATIENT EVER BEEN DIAGNOSED WITH LUNG CANCER?NO CREATE REFERRAL:GENERATE AND CREATE REFERRAL TO THE ONCOLOGY NURSE NAVIGATOR (SMP) LISTING USING THE LDCT SCAN PROCEDURE DISCLAIMER:PLEASE ADD DISCLAIMER FROM BROWSE SECTION OF THE NOTE BMI CARE GOAL FOLLOW-UP ABOVE NORMAL BMI FOLLOW-UPDIETARY MANAGEMENT EDUCATION, GUIDANCE, AND COUNSELING ALCOHOL SCREENING DID YOU HAVE A DRINK CONTAINING ALCOHOL IN THE PAST YEAR?YES HOW OFTEN DID YOU HAVE SIX OR MORE DRINKS ON ONE OCCASION IN THE PAST YEAR?NEVER (0 POINTS) HOW MANY DRINKS DID YOU HAVE ON A TYPICAL DAY WHEN YOU WERE DRINKING IN THE PAST YEAR?1 OR 2 (0 POINTS) HOW OFTEN DID YOU HAVE A DRINK CONTAINING ALCOHOL IN THE PAST YEAR?MONTHLY OR LESS (1 POINT) POINTS1 INTERPRETATIONNEGATIVE RECREATIONAL DRUG USE DRUG USE?YES HOW OFTEN AND HOW MUCH? PT USES MEDICAL MARIJUANA CAFFEINE CAFFEINE USE?YES YES HOW OFTEN AND HOW MUCH? 4 COFFEE DAILY SEXUAL HX HAD SEX IN THE LAST 12 MONTHS (VAGINAL, ORAL, OR ANAL)?NO HAVE YOU EVER HAD AN STD?NO HIV / HEP-C SCREENING HIV TEST OFFERED TO PATIENT:YES ALREADY DONE DATE OFFERED:07/20/2017 TEST ACCEPTED:NO HEP-C TEST OFFERED TO PATIENT:YES DATE OFFERED:07/20/2017 REASON:OTHER (DOCUMENT IN NOTE) ALREADY BEEN TESTED NEGATIVE TEST ACCEPTED:NO REASON:PATIENT DECLINED BROCHURE PROVIDED TO PATIENTYES 07/20/2017 ANABAPTISM [id number] NONE LANGUAGE LANGUAGES SPOKEN:[place] EDUCATION LEVEL OF EDUCATION:NOT FINISHED HIGH SCHOOL JUST COMPLETED GED LEARNING BARRIERS / SPECIAL NEEDS CHANGE FROM LAST VISIT?NO BARRIERS TO LEARNING?NO HEARING IMPAIRED?NO VISION IMPAIRED?YES :CORRECTIVE LENSES COGNITIVELY IMPAIRED?NO READINESS TO LEARN?YES LEARNING PREFERENCES?NO LEARNING CAPABILITIES PRESENT?YES EMOTIONAL BARRIERS?NO SPECIAL DEVICES?YES :BRACE KNEE 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 DIET: REGULAR. EXERCISE: WALKING. MARITAL STATUS: .. OTHERS AT HOME: NONE. - PFS REFERRAL NEEDED?NO CLERGY REFERRAL NEEDED?NO PUBLIC HEALTH REFERRAL NEEDED?NO WAS THE PROVIDER NOTIFIED OF ANY PERTINENT INFO?YES HAS THE PATIENT BEEN EDUCATED REGARDING HIS/HER PLAN OF CARE?YES HAS THE PATIENT BEEN EDUCATED REGARDING PAIN, THE RISK FOR PAIN, THE IMPORTANCE OF EFFECTIVE PAIN MANAGEMENT, AND THE PAIN ASSESSMENT PROCESS?YES HOUSING: MOVED INTO HUD HOUSING. ADVANCE DIRECTIVE ADVANCE DIRECTIVE DISCUSSED WITH PATIENT:YES STATES SHE DOES NOT HAVE ADVANCED DIRECTIVES BORN AND RASIED IN [place],. HOSPITALIZATION/MAJOR DIAGNOSTIC PROCEDURE [facility]- 06/1983 [facility] 02/1985 ER DUE TO EXTREMELY HIGH BLOOD PRESSURE AND COMPLAINTS OF CHEST PAIN REVIEW OF SYSTEMS CONSTITUTIONAL: ANY RECENT FEVER NO . CHILLS NO . WEIGHT CHANGE OF UNKNOWN REASONS NO . GASTROENTEROLOGY: NEW UNEXPLAINABLE CHANGES IN BOWEL CONTROL NO . CONSTIPATION NO . GENITOURINARY: ANY NEW CHANGE IN BLADDER CONTROL? NO . NEUROLOGY: NEW ONSET DIZZINESS OR NEUROLOGICAL CHANGES NOT MENTIONED NO . NEW NUMBNESS OR PAIN PATTERNS NOT MENTIONED AND PERTINENT TO TODAY'S VISIT NO . CARDIOLOGY: NEW CHEST PRESSURE NO . PATIENT DENIES NO . RESPIRATORY: UNEXPLAINABLE COUGH NO . NEW SHORTNESS OF BREATH NO . VITAL SIGNS WT 192 LBS, HT 62 IN, BMI 35.11 INDEX, BP 132/69 MM HG, HR 69 /MIN, RR 18 /MIN, TEMP 97.2 F, OXYGEN SAT % 98%, SAFE IN ENV? (Y/N) YEST.TIMOTHY ROMERO. EXAMINATION GENERAL EXAMINATION: GENERALNO ACUTE DISTRESS, WELL NOURISHED AND HYDRATED. PSYCHAPPROPRIATE MOOD AND AFFECT . FACE:UNREMARKABLE. NECK:NO LYMPHADENOPATHY, SUPPLE, . LUNGS:CLEAR TO AUSCULTATION BILATERALLY, NO WHEEZES, RHONCHI, RALES. HEART:NO MURMURS, REGULAR RATE AND RHYTHM. MUSCULOSKELETAL:FULL RANGE OF MOTION OF RIGHT ARM BUT WITH INCREASE IN PAIN NOTED AT ABDUCTION SHOULDER HEIGHT , TRIGGER POINTS:, ELICITED WITH PALPATION OVER CERVICAL SPINOUS PROCESSES AND ACROSS THE TRAPEZIUS MUSCLES BILATERALLY RIGHT GREATER THAN LEFT.. RESTRICTION OF ROM IS NOTED. TRIGGER POINTS NOTED OVER RIGHT SCAPULA AND UPPER BACK.. DIAGNOSTIC TESTS REVIEWEDCERVICAL MRI NOVEMBER 2018 . ASSESSMENTS MYALGIA, OTHER SITE - M79.18 (PRIMARY) TREATMENT MYALGIA, OTHER SITE MEDICATION: VALIUM TAB 10MG ORALLY (DIAZEPAM) (ORDERED FOR 10/20/2020) MED: PAIN NORCO TABLET 5MG/325MG ORALLY HYDROCODONE/ACETAMINOPHEN (ORDERED FOR 10/20/2020)HOLLY HERNANDEZ FNP 10/06/2020 2:20:33 PM > 2 TABLETS NOTES: TRIGGER POINT INJECTIONS RIGHT NECK, RIGHT SHOULDER, RIGHT THORACIC PRINTED AND REVIEWED PRE PROCEDURE INFORMATION, PATIENT VERBALIZED UNDERSTANDING MALOU ROMERO. DISPOSITION & COMMUNICATION FOLLOW UP POST (REASON: TRIGGER POINT INJECTIONS RIGHT NECK, RIGHT SHOULDER, RIGHT THORACIC) ELECTRONICALLY SIGNED BY MONROE MEJÍA ON 10/07/2020 AT 03:11 PM EDT DISCLAIMER : THIS IS A VISIT SUMMARY EXTRACTED FROM THE [employer] CHART. IT IS NOT A COPY OF THE [employer] PROGRESS NOTE. MTDD
== END ==
LOC: M PAIN 14:00
PROVIDERS: ATTEND Nurse Practitioner Family
DX: M79.18 Myalgia, other site (principal); J45.909 Unspecified asthma, uncomplicated; G43.909 Migraine, unspecified, not intractable, without status migrainosus; Z86.59 Personal history of other mental and behavioral disorders; Z87.891 Personal history of nicotine dependence; Z88.8 Allergy status to other drugs, medicaments and biological substances; Z79.899 Other long term (current) drug therapy

== ENCOUNTER → 2020-10-31 | Outpatient (CLI) | payer OTHER | LOC: M LABSMTC 11:25 | PROVIDERS: ATTEND Anesthesiology | DX: Z20.828 Contact with and (suspected) exposure to other viral communicable diseases (principal); Z11.59 Encounter for screening for other viral diseases ==

== ENCOUNTER → 2021-01-06 | Outpatient (CLI) | payer OTHER ==
[2021-01-06 10:51] LABS: HEMOGLOBIN A1c 5.6 %
[2021-01-06 11:07] LABS: ALBUMIN 3.8 GM/DL (3.2-5.2); ALT/SGPT 22 U/L (12-78); BILIRUBIN,TOTAL 0.3 MG/DL (0.2-1.0); BLOOD UREA NITROGEN 20 MG/DL (7-18); CALCIUM LEVEL 9.3 MG/DL (8.5-10.1); CARBON DIOXIDE LEVEL 29 MEQ/L (21-32); CHLORIDE LEVEL 102 MEQ/L (98-107); CHOLESTEROL LEVEL 265 MG/DL (<200); CHOLESTEROL RISK RATIO 5.408 (<5); CREATININE FOR GFR 0.76 MG/DL (0.55-1.30); GLOMERULAR FILTRATION RATE > 60.0 (>51); GLUCOSE, FASTING 102 MG/DL (70-100); HDL CHOLESTEROL 49 MG/DL (>40); LDL CHOLESTEROL 191 MG/DL (<100); NON-HDL-C 216 MG/DL; POTASSIUM SERUM 3.9 MEQ/L (3.5-5.1); SODIUM LEVEL 137 MEQ/L (136-145); TOTAL PROTEIN 7.3 GM/DL (6.4-8.2); TRIGLYCERIDES LEVEL 123 MG/DL (<150)
== END ==
LOC: M LAB 08:59
PROVIDERS: ATTEND Nurse Practitioner Adult Health
DX: E78.2 Mixed hyperlipidemia (principal); E55.9 Vitamin D deficiency, unspecified; Z13.1 Encounter for screening for diabetes mellitus; Z13.29 Encounter for screening for other suspected endocrine disorder

== ENCOUNTER → 2021-01-25 | Outpatient (CLI) | payer OTHER ==
--- NOTE | 2021-01-26 14:57 | REPVR ---
PROCEDURE INFORMATION: Exam: MR Cervical Spine Without Contrast Exam date and time: 01/25/2021 9:21 AM Age: 60 years old Clinical indication: Neck pain; Additional info: Cervical spondylosis TECHNIQUE: Imaging protocol: Multiplanar magnetic resonance images of the cervical spine without contrast. COMPARISON: MRI-Spine,Cervical without con 02/22/2019 11:02 AM FINDINGS: Vertebrae: There is straightening of the normal cervical lordosis. There is no fracture. Spinal cord: Normal signal. No cord compression. C2-C3: There is a shallow disc osteophyte complex. There is mild facet hypertrophy. The spinal canal and neural foramina are patent. C3-C4: There is a shallow disc osteophyte complex asymmetric to the left. There is mild right and moderate left facet hypertrophy. There is moderate to severe left neural foraminal narrowing.. C4-C5: There is a diffuse disc osteophyte complex. There is moderate facet hypertrophy. The spinal canal and neural foramina are patent. C5-C6: There is a diffuse disc osteophyte complex. There is moderate facet hypertrophy. There is severe bilateral neural foraminal narrowing. There is mild canal stenosis. C6-C7: There is a shallow disc osteophyte complex. There is mild facet hypertrophy. The spinal canal and neural foramina are patent. C7-T1: No significant disc disease. No significant spinal stenosis. Soft tissues: Unremarkable. Vertebral arteries: Expected flow voids in the vertebral arteries. IMPRESSION: Degenerative disc disease and spondylosis. At C5/6, changes contribute to severe bilateral neural foraminal narrowing. Electronically signed by: Veronica Nation On 01/26/2021 14:56:26 PM
== END ==
LOC: M PLAIMG 08:27
PROVIDERS: ATTEND Pain Medicine Interventional Pain Medicine
DX: M47.812 Spondylosis without myelopathy or radiculopathy, cervical region (principal)

== ENCOUNTER → 2021-09-15 | Outpatient (CLI) | payer OTHER ==
[~2021-09-15] MED LIST changes: +LOSA100T45; -LOSA100T50
[2021-09-15 12:58] LABS: EOS # 0.2 10^3/uL (0.0-0.5)
== END ==
LOC: M WUC 10:03
PROVIDERS: ATTEND Internal Medicine Pulmonary Disease
DX: J45.50 Severe persistent asthma, uncomplicated (principal)

== ENCOUNTER → 2021-09-15 | Outpatient (CLI) | payer OTHER ==
[2021-09-15 13:37] LABS: ALBUMIN 3.8 GM/DL (3.2-5.2); ALT/SGPT 26 U/L (12-78); BILIRUBIN,TOTAL 0.3 MG/DL (0.2-1.0); BLOOD UREA NITROGEN 12 MG/DL (7-18); CALCIUM LEVEL 9.8 MG/DL (8.5-10.1); CARBON DIOXIDE LEVEL 29 MEQ/L (21-32); CHLORIDE LEVEL 104 MEQ/L (98-107); CHOLESTEROL LEVEL 312 MG/DL (<200); CREATININE FOR GFR 0.75 MG/DL (0.55-1.30); GLOMERULAR FILTRATION RATE > 60.0 (>51); GLUCOSE, FASTING 99 MG/DL (70-100); HDL CHOLESTEROL 44 MG/DL (>40); LDL CHOLESTEROL 236 MG/DL (<100); NON-HDL-C 268 MG/DL; SODIUM LEVEL 139 MEQ/L (136-145); TOTAL PROTEIN 7.1 GM/DL (6.4-8.2); TRIGLYCERIDES LEVEL 162 MG/DL (<150)
[2021-09-15 13:39] LABS: TOTAL 25(OH) VITAMIN D 71.2 NG/ML (30.0-100.0)
[2021-09-15 14:33] LABS: HEMOGLOBIN A1c 5.7 %
== END ==
LOC: M WUC 10:00
PROVIDERS: ATTEND Nurse Practitioner Adult Health
DX: Z13.1 Encounter for screening for diabetes mellitus (principal); E55.9 Vitamin D deficiency, unspecified; E78.2 Mixed hyperlipidemia; Z13.29 Encounter for screening for other suspected endocrine disorder

== ENCOUNTER → 2021-10-13 | Outpatient (CLI) | payer OTHER | LOC: M RAD 12:51 | PROVIDERS: ATTEND Nurse Practitioner Family | DX: M54.16 Radiculopathy, lumbar region (principal); M41.9 Scoliosis, unspecified ==

== ENCOUNTER → 2021-10-26 | Outpatient (CLI) | payer OTHER | LOC: M WHC 09:37 | PROVIDERS: ATTEND Nurse Practitioner Adult Health | DX: Z12.31 Encounter for screening mammogram for malignant neoplasm of breast (principal) ==

== ENCOUNTER → 2021-12-15 | Outpatient (CLI) | payer OTHER | LOC: M PLARAD 12-03 10:10 → M PLAIMG 07:22 | PROVIDERS: ATTEND Nurse Practitioner Family | DX: M54.14 Radiculopathy, thoracic region (principal) ==

== ENCOUNTER → 2022-02-14 | Outpatient (CLI) | payer OTHER ==
[2022-02-14 12:46] LABS: ALBUMIN 3.8 GM/DL (3.2-5.2); ALT/SGPT 29 U/L (12-78); BILIRUBIN,TOTAL 0.3 MG/DL (0.2-1.0); BLOOD UREA NITROGEN 11 MG/DL (7-18); CALCIUM LEVEL 9.2 MG/DL (8.5-10.1); CARBON DIOXIDE LEVEL 29 MEQ/L (21-32); CHLORIDE LEVEL 104 MEQ/L (98-107); CHOLESTEROL LEVEL 255 MG/DL (<200); CHOLESTEROL RISK RATIO 5.425 (<5); CREATININE FOR GFR 0.67 MG/DL (0.55-1.30); GLOMERULAR FILTRATION RATE > 60.0 (>51); GLUCOSE, FASTING 90 MG/DL (70-100); HDL CHOLESTEROL 47 MG/DL (>40); LDL CHOLESTEROL 167 MG/DL (<100); NON-HDL-C 208 MG/DL; POTASSIUM SERUM 3.6 MEQ/L (3.5-5.1); SODIUM LEVEL 139 MEQ/L (136-145); TOTAL PROTEIN 7.1 GM/DL (6.4-8.2); TRIGLYCERIDES LEVEL 204 MG/DL (<150)
[2022-02-14 14:04] LABS: TOTAL 25(OH) VITAMIN D 57.3 NG/ML (30.0-100.0)
[2022-02-14 22:18] LABS: HEMOGLOBIN A1c 5.5 %
== END ==
LOC: M LAB 08:52
PROVIDERS: ATTEND Nurse Practitioner Adult Health
DX: Z13.1 Encounter for screening for diabetes mellitus (principal)

== ENCOUNTER → 2022-02-14 | Outpatient (CLI) | payer OTHER ==
[2022-02-14 10:31] LABS: BASO # 0.1 10^3/uL (0.0-0.2); BASO % 0.5 % (0.0-1.0); EOS # 0.2 10^3/uL (0.0-0.5); EOS % 1.9 % (0.0-3.0); HEMATOCRIT 38.7 % (36.0-47.0); HEMOGLOBIN 12.7 g/dl (12.0-15.5); LYMPH # 2.9 10^3/uL (1.5-5.0); LYMPH % 30.1 % (24.0-44.0); MEAN CORPUSCULAR HEMOGLOBIN 29.5 pg (27.0-33.0); MEAN CORPUSCULAR HGB CONC 32.8 g/dl (32.0-36.5); MEAN CORPUSCULAR VOLUME 89.8 fl (80.0-96.0); MONO # 0.5 10^3/uL (0.0-0.8); MONO % 5.3 % (2.0-8.0); NEUTROPHILS % 61.9 % (36.0-66.0); PLATELET COUNT, AUTOMATED 325 10^3/uL (150-450); RED BLOOD COUNT 4.31 10^6/uL (4.00-5.40); WHITE BLOOD COUNT 9.6 10^3/uL (4.0-10.0)
[2022-02-14 12:34] LABS: ALBUMIN 3.9 GM/DL (3.2-5.2); ALT/SGPT 28 U/L (12-78); BILIRUBIN,TOTAL 0.2 MG/DL (0.2-1.0); BLOOD UREA NITROGEN 11 MG/DL (7-18); CALCIUM LEVEL 9.3 MG/DL (8.5-10.1); CARBON DIOXIDE LEVEL 28 MEQ/L (21-32); CHLORIDE LEVEL 108 MEQ/L (98-107); CREATININE FOR GFR 0.64 MG/DL (0.55-1.30); GLOMERULAR FILTRATION RATE > 60.0 (>51); GLUCOSE, FASTING 90 MG/DL (70-100); POTASSIUM SERUM 3.6 MEQ/L (3.5-5.1); SODIUM LEVEL 139 MEQ/L (136-145); TOTAL PROTEIN 7.1 GM/DL (6.4-8.2)
== END ==
LOC: M EKG 08:48
PROVIDERS: ATTEND Student in an Organized Health Care Education/Training Program
DX: F31.9 Bipolar disorder, unspecified (principal)

== ENCOUNTER → 2022-04-05 | Outpatient (CLI) | payer OTHER | LOC: M PAIN 13:00 | PROVIDERS: ATTEND Nurse Practitioner Family | DX: M79.10 Myalgia, unspecified site (principal); J45.909 Unspecified asthma, uncomplicated; G43.909 Migraine, unspecified, not intractable, without status migrainosus; Z86.59 Personal history of other mental and behavioral disorders; Z87.891 Personal history of nicotine dependence; Z88.8 Allergy status to other drugs, medicaments and biological substances; Z79.899 Other long term (current) drug therapy ==

== ENCOUNTER → 2022-04-22 | Outpatient (CLI) | payer OTHER | LOC: M RAD 09:21 | PROVIDERS: ATTEND Nurse Practitioner Adult Health | DX: R91.1 Solitary pulmonary nodule (principal) ==

== ENCOUNTER → 2022-05-12 | Outpatient (CLI) | payer OTHER | LOC: M PAIN 16:15 | PROVIDERS: ATTEND Nurse Practitioner Family | DX: M54.2 Cervicalgia (principal); M79.10 Myalgia, unspecified site; G89.29 Other chronic pain; J45.909 Unspecified asthma, uncomplicated; G43.909 Migraine, unspecified, not intractable, without status migrainosus; Z86.59 Personal history of other mental and behavioral disorders; Z87.891 Personal history of nicotine dependence; Z88.8 Allergy status to other drugs, medicaments and biological substances; Z79.899 Other long term (current) drug therapy ==

== ENCOUNTER → 2022-05-19 | Outpatient (CLI) | payer OTHER | LOC: M WUC 13:51 | PROVIDERS: ATTEND Nurse Practitioner Family | DX: M54.2 Cervicalgia (principal) ==

== ENCOUNTER → 2022-12-30 | Outpatient (CLI) | payer OTHER ==
[~2022-12-30] MED LIST changes: -LOSA100T45; +LOSA100T46
== END ==
LOC: M PAIN 11:45
PROVIDERS: ATTEND Nurse Practitioner Family
DX: M79.10 Myalgia, unspecified site (principal); G89.29 Other chronic pain; Z87.891 Personal history of nicotine dependence; Z88.8 Allergy status to other drugs, medicaments and biological substances; Z79.899 Other long term (current) drug therapy

== ENCOUNTER → 2023-12-05 | Outpatient (CLI) | payer OTHER ==
[2023-12-05 15:33] LABS: HEMATOCRIT 40.9 % (36.0-47.0); HEMOGLOBIN 13.4 g/dl (12.0-15.5); MEAN CORPUSCULAR HEMOGLOBIN 28.9 pg (27.0-33.0); MEAN CORPUSCULAR HGB CONC 32.8 g/dl (32.0-36.5); MEAN CORPUSCULAR VOLUME 88.1 fl (80.0-96.0); PLATELET COUNT, AUTOMATED 362 10^3/uL (150-450); RED BLOOD COUNT 4.64 10^6/uL (4.00-5.40); WHITE BLOOD COUNT 10.3 10^3/uL (4.0-10.0)
[2023-12-05 15:44] LABS: HEMOGLOBIN A1c 5.4 % (4.0-6.0)
[2023-12-05 16:08] LABS: ALBUMIN 4.3 G/DL (3.2-5.2); ALKALINE PHOSPHATASE 118 U/L (46-116); ALT/SGPT 35 U/L (7.0-40); AST/SGOT 25 U/L (<34); BILIRUBIN,TOTAL 0.5 MG/DL (0.3-1.2); BLOOD UREA NITROGEN 21 MG/DL (9-23); CALCIUM LEVEL 10.1 MG/DL (8.3-10.6); CARBON DIOXIDE LEVEL 26 MMOL/L (20-31); CHLORIDE LEVEL 105 MMOL/L (98-107); CREATININE FOR GFR 0.77 MG/DL (0.55-1.30); GLOMERULAR FILTRATION RATE > 60.0 (>45); GLUCOSE, FASTING 92 MG/DL (74-106); POTASSIUM SERUM 4.4 MMOL/L (3.5-5.1); RHEUMATOID FACTOR QUANT < 3.5 IU/ML (<14); SODIUM LEVEL 139 MMOL/L (136-145); TOTAL 25(OH) VITAMIN D 55.8 NG/ML (20.0-100.0); TOTAL PROTEIN 7.5 G/DL (5.7-8.2)
[2023-12-05 16:09] LABS: THYROID STIMULATING HORMONE 1.531 uIU/ML (0.55-4.78)
== END ==
LOC: M PLALAB 13:58
PROVIDERS: ATTEND Nurse Practitioner Adult Health
DX: I10 Essential (primary) hypertension (principal); E55.9 Vitamin D deficiency, unspecified; M50.30 Other cervical disc degeneration, unspecified cervical region; Z13.1 Encounter for screening for diabetes mellitus

== ENCOUNTER → 2024-01-19 | Outpatient (CLI) | payer OTHER | LOC: M RAD 15:04 | PROVIDERS: ATTEND Nurse Practitioner | DX: M54.2 Cervicalgia (principal); Z53.9 Procedure and treatment not carried out, unspecified reason ==

== ENCOUNTER → 2024-04-22 | Outpatient (CLI) | payer OTHER | LOC: M WUC 10:26 | PROVIDERS: ATTEND Nurse Practitioner Adult Health | DX: M79.89 Other specified soft tissue disorders (principal) ==

== ENCOUNTER → 2024-06-28 | Outpatient (CLI) | payer OTHER | LOC: M RAD 07:51 | PROVIDERS: ATTEND Nurse Practitioner Adult Health | DX: R91.1 Solitary pulmonary nodule (principal) ==